=== PATIENT | female | born 1990 | race Caucasian/White ===

== ENCOUNTER → 2019-05-04 | Outpatient (CLI) | payer MEDICAID, OTHER ==
[~2019-05-04] MED LIST: PREN1TAB89 PO
== END | disposition home or self-care (01) ==
LOC: RAH 16:56
PROVIDERS: ATTEND Physician Assistant
DX: M79.672 Pain in left foot (principal); M79.89 Other specified soft tissue disorders
CPT/HCPCS: 73630

== ENCOUNTER → 2019-06-22 | Outpatient (CLI) | payer OTHER ==
[2019-06-22 07:39] LABS: BASOPHILS % (AUTO) 0.6 % (0.0-5.0); EOSINOPHILS % (AUTO) 1.7 % (0.0-8.0); HEMATOCRIT 42.9 % (36-48); MEAN CORPUSCULAR HEMOGLOBIN 29.2 pg (27.0-33.0); MEAN CORPUSCULAR HGB CONC 32.4 g/dL (32.0-36.0); MEAN CORPUSCULAR VOLUME 90.1 fL (79-99); MONOCYTES % (AUTO) 5.2 % (3.0-13.0); NEUTROPHILS % (AUTO) 66.2 % (40.0-77.0); PLATELET COUNT (AUTO) 301 K/uL (130-400); RED BLOOD CELL COUNT(AUTO) 4.76 MIL/uL (4.00-5.50); RED CELL DISTRIBUTION WIDTH 12.7 % (11.0-15.5); WHITE BLOOD COUNT (AUTO) 9.9 K/uL (4.8-10.8)
[2019-06-22 07:48] LABS: HEMOGLOBIN A1C 5.3 % (4.0-6.0)
[2019-06-22 08:05] LABS: ALBUMIN 3.5 g/dL (3.5-5.0); BILIRUBIN,TOTAL 0.2 mg/dL (0.2-1.0); CREATININE 0.7 mg/dL (0.5-1.5); THYROID STIMULATING HORMONE 2.88 uIU/mL (0.36-3.74)
== END | disposition home or self-care (01) ==
LOC: LAB 07:14
PROVIDERS: ATTEND Obstetrics & Gynecology
DX: M25.572 Pain in left ankle and joints of left foot (principal)
CPT/HCPCS: 36415; 80053; 80061; 82306; 83036; 84443; 85025; 85651; 86140; 86431; A6260

== ENCOUNTER → 2019-08-15 | Outpatient (CLI) | payer OTHER ==
[~2019-08-15] MED LIST changes: +GADODIAMIDE 10 MMOL/20 ML VIAL IV ONE
== END | disposition home or self-care (01) ==
LOC: RAH 15:37
PROVIDERS: ATTEND Psychiatry & Neurology Neurology
DX: D35.4 Benign neoplasm of pineal gland (principal); G43.909 Migraine, unspecified, not intractable, without status migrainosus
CPT/HCPCS: 70544; 70553; A9579

== ENCOUNTER 2019-09-22 18:24 | Emergency (ER) | payer OTHER ==
[~2019-09-22 18:24] MED LIST changes: -GADODIAMIDE 10 MMOL/20 ML VIAL IV ONE
== END 2019-09-22 19:00 | disposition home or self-care (01) ==
LOC: EDH 18:24
DX: J06.9 Acute upper respiratory infection, unspecified (principal); Z20.828 Contact with and (suspected) exposure to other viral communicable diseases
CPT/HCPCS: 36415; 99283; U0003

== ENCOUNTER → 2020-04-02 | Outpatient (CLI) | payer OTHER ==
[2020-04-02 09:14] LABS: BASOPHILS % (AUTO) 0.7 % (0.0-5.0); HEMATOCRIT 43.7 % (36-48); LYMPHOCYTES % (AUTO) 23.3 % (21.0-51.0); MEAN CORPUSCULAR HEMOGLOBIN 29.6 pg (27.0-33.0); MEAN CORPUSCULAR HGB CONC 33.4 g/dL (32.0-36.0); MEAN CORPUSCULAR VOLUME 88.6 fL (79-99); MONOCYTES % (AUTO) 5.3 % (3.0-13.0); NEUTROPHILS % (AUTO) 68.5 % (40.0-77.0); PLATELET COUNT (AUTO) 355 K/uL (130-400); RED BLOOD CELL COUNT(AUTO) 4.93 MIL/uL (4.00-5.50); RED CELL DISTRIBUTION WIDTH 12.7 % (11.0-15.5); WHITE BLOOD COUNT (AUTO) 8.8 K/uL (4.8-10.8)
[2020-04-02 09:15] LABS: APPEARANCE,URINE Clear (CLEAR); BILIRUBIN,URINE Negative (NEGATIVE); COLOR,URINE Yellow (YELLOW); GLUCOSE, URINE (UA) Negative (NEGATIVE); KETONES,URINE Negative (NEGATIVE); LEUKOCYTE ESTERASE ,URINE Moderate (NEGATIVE); NITRATE,URINE Negative (NEGATIVE); OCCULT BLOOD,URINE Negative (NEGATIVE); PH,URINE 7.5 (5.0-8.0); PROTEIN,URINE Negative (NEGATIVE)
[2020-04-02 09:37] LABS: ALBUMIN 3.3 g/dL (3.5-5.0); BILIRUBIN,TOTAL 0.4 mg/dL (0.2-1.0); CREATININE 0.6 mg/dL (0.5-1.5); THYROID STIMULATING HORMONE 1.43 uIU/mL (0.36-3.74); TOTAL PROTEIN, SERUM 7.9 g/dL (6.0-8.3)
[2020-04-02 09:43] LABS: BACTERIA,URINE Few /HPF (None Seen)
[2020-04-02 09:44] LABS: RBC,URINE None Seen /HPF (0-1)
[2020-04-02 10:11] LABS: ERYTHROCYTE SEDIMENTATION RATE 18 MM/HR (0-20)
== END | disposition home or self-care (01) ==
LOC: LAB 08:00
PROVIDERS: ATTEND Nurse Practitioner Family
DX: Z13.1 Encounter for screening for diabetes mellitus (principal); Z13.21 Encounter for screening for nutritional disorder; Z13.220 Encounter for screening for lipoid disorders; M79.641 Pain in right hand; M79.642 Pain in left hand; M25.50 Pain in unspecified joint; M79.89 Other specified soft tissue disorders; R60.0 Localized edema
CPT/HCPCS: 36415; 80053; 80061; 81001; 82306; 83520; 84439; 84443; 85025; 85651; 86038; 86215; 86235; 86431; 87088

== ENCOUNTER → 2020-07-03 | Outpatient (CLI) | payer OTHER ==
[2020-07-03 14:29] LABS: BASOPHILS % (AUTO) 0.5 % (0.0-5.0); EOSINOPHILS % (AUTO) 1.1 % (0.0-8.0); HEMATOCRIT 42.4 % (36-48); LYMPHOCYTES % (AUTO) 28.1 % (21.0-51.0); MEAN CORPUSCULAR HEMOGLOBIN 29.7 pg (27.0-33.0); MEAN CORPUSCULAR HGB CONC 33.7 g/dL (32.0-36.0); MEAN CORPUSCULAR VOLUME 88.1 fL (79-99); MONOCYTES % (AUTO) 4.1 % (3.0-13.0); PLATELET COUNT (AUTO) 353 K/uL (130-400); RED BLOOD CELL COUNT(AUTO) 4.81 MIL/uL (4.00-5.50); RED CELL DISTRIBUTION WIDTH 12.5 % (11.0-15.5)
[2020-07-03 14:45] LABS: ALBUMIN 3.6 g/dL (3.5-5.0); BILIRUBIN,TOTAL 0.3 mg/dL (0.2-1.0); CREATININE 0.6 mg/dL (0.5-1.5); CRP QUANTITATIVE 25.7 mg/L (0.00-9.0); POTASSIUM 3.8 mmol/L (3.5-5.1); TOTAL PROTEIN, SERUM 9.6 g/dL (6.0-8.3)
[2020-07-03 15:29] LABS: ERYTHROCYTE SEDIMENTATION RATE 21 MM/HR (0-20)
== END | disposition home or self-care (01) ==
LOC: RAH 13:55
PROVIDERS: ATTEND Internal Medicine
DX: M79.89 Other specified soft tissue disorders (principal); M19.91 Primary osteoarthritis, unspecified site; M06.4 Inflammatory polyarthropathy
CPT/HCPCS: 36415; 73630; 80053; 85025; 85651; 86140

== ENCOUNTER → 2020-09-11 | Outpatient (CLI) | payer OTHER ==
[2020-09-11 09:46] LABS: BASOPHILS % (AUTO) 0.5 % (0.0-5.0); EOSINOPHILS % (AUTO) 1.6 % (0.0-8.0); HEMATOCRIT 42.7 % (36-48); LYMPHOCYTES % (AUTO) 19.5 % (21.0-51.0); MEAN CORPUSCULAR HEMOGLOBIN 29.7 pg (27.0-33.0); MEAN CORPUSCULAR HGB CONC 32.8 g/dL (32.0-36.0); MEAN CORPUSCULAR VOLUME 90.5 fL (79-99); MONOCYTES % (AUTO) 4.9 % (3.0-13.0); NEUTROPHILS % (AUTO) 73.2 % (40.0-77.0); PLATELET COUNT (AUTO) 319 K/uL (130-400); RED BLOOD CELL COUNT(AUTO) 4.72 MIL/uL (4.00-5.50); RED CELL DISTRIBUTION WIDTH 12.9 % (11.0-15.5); WHITE BLOOD COUNT (AUTO) 9.7 K/uL (4.8-10.8)
[2020-09-11 10:01] LABS: ALBUMIN 3.5 g/dL (3.5-5.0); BILIRUBIN,TOTAL 0.4 mg/dL (0.2-1.0); CREATININE 0.6 mg/dL (0.5-1.5); CRP QUANTITATIVE 28.7 mg/L (0.00-9.0); POTASSIUM 4.2 mmol/L (3.5-5.1); TOTAL PROTEIN, SERUM 8.4 g/dL (6.0-8.3)
[2020-09-11 11:08] LABS: ERYTHROCYTE SEDIMENTATION RATE 26 MM/HR (0-20)
== END | disposition home or self-care (01) ==
LOC: LAB 08:29
PROVIDERS: ATTEND Internal Medicine
DX: Z79.899 Other long term (current) drug therapy (principal)
CPT/HCPCS: 36415; 80053; 85025; 85651; 86140

== ENCOUNTER → 2021-06-03 | Outpatient (CLI) | payer OTHER ==
[2021-06-03 08:34] LABS: BASOPHILS % (AUTO) 0.3 % (0.0-5.0); EOSINOPHILS % (AUTO) 1.6 % (0.0-8.0); HEMATOCRIT 37.8 % (36-48); LYMPHOCYTES % (AUTO) 16.9 % (21.0-51.0); MEAN CORPUSCULAR HEMOGLOBIN 30.2 pg (27.0-33.0); MEAN CORPUSCULAR HGB CONC 33.9 g/dL (32.0-36.0); MEAN CORPUSCULAR VOLUME 89.2 fL (79-99); MONOCYTES % (AUTO) 3.9 % (3.0-13.0); NEUTROPHILS % (AUTO) 76.8 % (40.0-77.0); PLATELET COUNT (AUTO) 271 K/uL (130-400); RED BLOOD CELL COUNT(AUTO) 4.24 MIL/uL (4.00-5.50); RED CELL DISTRIBUTION WIDTH 13.9 % (11.0-15.5); WHITE BLOOD COUNT (AUTO) 10.9 K/uL (4.8-10.8)
[2021-06-03 08:47] LABS: AMPHET/METH SCREEN,URINE NEGATIVE (NEGATIVE); BARBITURATE SCREEN, URINE NEGATIVE (NEGATIVE); BENZODIAZEPINES SCREEN,URINE NEGATIVE (NEGATIVE); CANNABINOID SCREEN,URINE NEGATIVE (NEGATIVE); COCAINE SCREEN,URINE NEGATIVE (NEGATIVE); OPIATE SCREEN,URINE NEGATIVE (NEGATIVE); PHENCYCLIDINE SCREEN,URINE NEGATIVE (NEGATIVE)
[2021-06-03 09:10] LABS: THYROID STIMULATING HORMONE 2.36 uIU/mL (0.36-3.74)
[2021-06-03 14:36] LABS: RAPID PLASMA REAGIN NONREACTIVE (NONREACTIVE)
[2021-06-03 17:10] LABS: HEMOGLOBIN A1C 5.1 % (4.0-6.0)
[2021-06-07 18:09] LABS: RUBELLA IGM ANTIBODY <20.0 AU/mL (0.0-19.9)
== END | disposition home or self-care (01) ==
LOC: LAB 07:28
PROVIDERS: ATTEND Obstetrics & Gynecology
DX: Z36.9 Encounter for antenatal screening, unspecified (principal)
CPT/HCPCS: 36415; 80305; 82947; 83036; 84443; 85025; 86592; 86701; 86762; 86850; 86900; 86901; 87088; 87340; 87390

== ENCOUNTER 2021-10-22 16:19 | Observation (INO) | payer OTHER ==
[~2021-10-22] VITALS: Ht 154.9 cm; Wt 99.8 kg
[2021-10-22 16:22] VITALS: BP 155/86
[2021-10-22 17:03] LABS: APPEARANCE,URINE CLOUDY (CLEAR); BASOPHILS % (AUTO) 0.2 % (0.0-5.0); BILIRUBIN,URINE NEGATIVE (NEGATIVE); COLOR,URINE YELLOW (YELLOW); EOSINOPHILS % (AUTO) 1.1 % (0.0-8.0); GLUCOSE, URINE (UA) NEGATIVE (NEGATIVE); HEMATOCRIT 36.6 % (36-48); KETONES,URINE NEGATIVE (NEGATIVE); LEUKOCYTE ESTERASE ,URINE TRACE (NEGATIVE); LYMPHOCYTES % (AUTO) 22.3 % (21.0-51.0); MEAN CORPUSCULAR HEMOGLOBIN 30.2 pg (27.0-33.0); MEAN CORPUSCULAR HGB CONC 33.6 g/dL (32.0-36.0); MEAN CORPUSCULAR VOLUME 89.9 fL (79-99); MONOCYTES % (AUTO) 6.4 % (3.0-13.0); NEUTROPHILS % (AUTO) 69.6 % (40.0-77.0); NITRATE,URINE NEGATIVE (NEGATIVE); OCCULT BLOOD,URINE LARGE (NEGATIVE); PLATELET COUNT (AUTO) 228 K/uL (130-400); PROTEIN,URINE NEGATIVE (NEGATIVE); RED BLOOD CELL COUNT(AUTO) 4.07 MIL/uL (4.00-5.50); RED CELL DISTRIBUTION WIDTH 14.3 % (11.0-15.5); UROBILINOGEN,URINE 0.2 mg/dL (0.2-1.0); WHITE BLOOD COUNT (AUTO) 8.5 K/uL (4.8-10.8)
[2021-10-22 17:13] LABS: CREATININE 0.6 mg/dL (0.5-1.5); POTASSIUM 3.7 mmol/L (3.5-5.1)
[2021-10-22 17:16] LABS: INR 0.93 (0.85-1.15); PROTHROMBIN TIME 9.7 SEC (9.6-11.6)
[2021-10-22 17:17] LABS: PARTIAL THROMBOPLASTIN TIME 26.4 SEC (26.3-35.5)
[2021-10-22 17:18] LABS: ALBUMIN 2.4 g/dL (3.5-5.0); TOTAL PROTEIN, SERUM 7.1 g/dL (6.0-8.3)
[2021-10-22 17:20] LABS: RBC,URINE 26-50 /HPF (0-1)
[2021-10-22 17:21] LABS: BACTERIA,URINE Few /HPF (None Seen); SQUAMOUS EPITHELIAL CELL,UR Moderate /HPF (0-2)
== END 2021-10-22 18:00 | disposition home or self-care (01) ==
LOC: EDH 16:19 → LDH 16:20
PROVIDERS: ADMIT Obstetrics & Gynecology; ATTEND Obstetrics & Gynecology
DX: O26.893 Other specified pregnancy related conditions, third trimester (principal); R03.0 Elevated blood-pressure reading, without diagnosis of hypertension; Z3A.37 37 weeks gestation of pregnancy; Z79.899 Other long term (current) drug therapy
CPT/HCPCS: 59025; 76805; 84550; 80053; 85025; 85384; 85610; 85730; 81001; 36415; G0378; G0379

== ENCOUNTER 2021-11-16 17:21 | Inpatient (IN) | payer OTHER, MEDICAID ==
[~2021-11-16] VITALS: Ht 157.5 cm; Wt 98.9 kg
[2021-11-16] MEDS ORDERED: NALOXONE HCL 0.4 MG/1 ML ML IV PRN (18:00)
[2021-11-16] MEDS ORDERED: ROPIVACAINE 0.2% 100ML VIAL 100 ML EP SCH (18:00)
[2021-11-16] MEDS ORDERED: EPHEDRINE SULFATE 50 MG/ML AMPULE IVP PRN (18:00)
[2021-11-16] MEDS ORDERED: PROMETHAZINE HCL 25 MG/ML 1ML AMPULE IM PRN (18:00)
[2021-11-16] MEDS ORDERED: MEPERIDINE-PF 50 MG/ML SYG IVP PRN (18:00)
[2021-11-16] MEDS ORDERED: OXYTOCIN-LR 20 UNITS/1000 ML 1,000 ML IV SCH (18:00)
[2021-11-16] MEDS ORDERED: DINOPROSTONE 10 MG VAGINAL SUPP VG SCH (18:00)
[2021-11-16] MEDS ORDERED: AMPICILLIN 2GM+NS 100ML 100 ML IV SCH (18:00)
[2021-11-16] MEDS ORDERED: LACTATED RINGERS 500 ML 500 ML IV PRN (18:00)
[2021-11-16] MEDS: LACTATED RINGERS 1000ML 1,000 ML IV PRN (18:28)
[2021-11-16 19:17] VITALS: BP 111/58
[2021-11-16 19:21] LABS: HEMATOCRIT 35.8 % (36-48); MEAN CORPUSCULAR HEMOGLOBIN 30.1 pg (27.0-33.0); MEAN CORPUSCULAR HGB CONC 33.8 g/dL (32.0-36.0); MEAN CORPUSCULAR VOLUME 89.1 fL (79-99); RED BLOOD CELL COUNT(AUTO) 4.02 MIL/uL (4.00-5.50); RED CELL DISTRIBUTION WIDTH 14.1 % (11.0-15.5); WHITE BLOOD COUNT (AUTO) 7.2 K/uL (4.8-10.8)
[2021-11-16 19:30] LABS: APPEARANCE,URINE CLOUDY (CLEAR); BILIRUBIN,URINE NEGATIVE (NEGATIVE); COLOR,URINE YELLOW (YELLOW); GLUCOSE, URINE (UA) NEGATIVE (NEGATIVE); KETONES,URINE 5 mg/dL (NEGATIVE); LEUKOCYTE ESTERASE ,URINE NEGATIVE (NEGATIVE); NITRATE,URINE NEGATIVE (NEGATIVE); OCCULT BLOOD,URINE NEGATIVE (NEGATIVE); PROTEIN,URINE TRACE mg/dL (NEGATIVE); UROBILINOGEN,URINE 0.2 mg/dL (0.2-1.0)
[2021-11-16 19:34] LABS: PARTIAL THROMBOPLASTIN TIME 26.4 SEC (26.3-35.5)
[2021-11-16 19:35] LABS: CREATININE 0.6 mg/dL (0.5-1.5); POTASSIUM 3.5 mmol/L (3.5-5.1)
[2021-11-16 19:41] LABS: ALBUMIN 2.5 g/dL (3.5-5.0); TOTAL PROTEIN, SERUM 6.8 g/dL (6.0-8.3); URIC ACID 3.9 mg/dL (2.6-7.2)
[2021-11-16 19:44] LABS: RBC,URINE 0-1 /HPF (0-1)
[2021-11-16 19:45] LABS: BACTERIA,URINE Few /HPF (None Seen); CALCIUM OXALATE CRYSTALS,UR Few /LPF (None Seen); MUCUS,URINE Moderate LPF (None Seen); SQUAMOUS EPITHELIAL CELL,UR Moderate /HPF (0-2)
[2021-11-16 19:52] LABS: INR 0.93 (0.85-1.15); PROTHROMBIN TIME 9.4 SEC (9.6-11.6)
[2021-11-16 22:34] LABS: RAPID PLASMA REAGIN NONREACTIVE (NONREACTIVE)
[2021-11-16] MEDS: AMPICILLIN 1GM+NS 50ML 50 ML IV SCH (22:43)
[2021-11-17] MEDS: AMPICILLIN 1GM+NS 50ML 50 ML IV SCH ×5 (02:37→18:42)
[2021-11-17] MEDS ORDERED: FENTANYL CITRATE PF 50 MCG/1 ML 2ML VIAL ONE (07:48)
[2021-11-17] MEDS ORDERED: OXYTOCIN-LR 20 UNITS/1000 ML 1,000 ML IV SCH (08:00)
[2021-11-17] MEDS: LACTATED RINGERS 1000ML 1,000 ML IV PRN ×3 (08:10→16:00)
[2021-11-17] MEDS ORDERED: LIDOCAINE 2%-EPI 1:200,000 20 ML VIAL IJ ONE (10:29)
[2021-11-17] MEDS ORDERED: CEFAZOLIN SODIUM 1 GM VIAL ONE (19:31)
[2021-11-17] MEDS ORDERED: ONDANSETRON 4MG INJ ONE (19:40)
[2021-11-17] MEDS ORDERED: EPINEPHRINE PF 1MG (1:1,000) 1 MG/ML AMP ONE (19:41)
[2021-11-17] MEDS ORDERED: MORPHINE PF 100MG/10ML AMP IV ONE (19:42)
[2021-11-17] MEDS ORDERED: CALDOLOR 800MG+NS 250ML 250 ML IV ONE (19:47)
[2021-11-17] MEDS ORDERED: MISOPROSTOL 200 MCG TABLET ONE (19:47)
[2021-11-17] MEDS ORDERED: TRANEXAMIC ACID 1000MG/10ML ONE (19:54)
[2021-11-17] MEDS ORDERED: CEFAZOLIN SODIUM 2 GM VIAL IV ONE (19:57)
[2021-11-17] MEDS ORDERED: CALDOLOR 800MG+NS 250ML 250 ML IV PRN (20:00)
[2021-11-17] MEDS ORDERED: CEFAZOLIN SODIUM 1 GM VIAL IVP PRN (20:00)
[2021-11-17] MEDS ORDERED: MIDAZOLAM HCL 1 MG/ML 2ML VIAL ONE (20:25)
[2021-11-17] MEDS ORDERED: EPHEDRINE SULFATE 50 MG/ML AMPULE ONE (20:32)
[2021-11-17] MEDS ORDERED: PROMETHAZINE HCL 25 MG/ML 1ML AMPULE IM PRN (21:30)
[2021-11-17] MEDS ORDERED: MEPERIDINE-PF 75 MG/ML SYG IM PRN (21:30)
[2021-11-17] MEDS ORDERED: DEXTROSE 5 %-0.45 % NACL 1,000 ML IV PRN (21:30)
[2021-11-17] MEDS ORDERED: OXYTOCIN-LR 20 UNITS/1000 ML 1,000 ML IV PRN (21:30)
[2021-11-17] MEDS ORDERED: 0.9%NACL 10ML VIAL IVP PRN (21:30)
[2021-11-18] VITALS (7 sets, daily range): BP systolic 94–121; BP diastolic 51–72
[2021-11-18] MEDS ORDERED: HYDROCODONE/ACETAMINOPHEN 5/325 MG TAB PO PRN (04:30)
[2021-11-18] MEDS ORDERED: ACETAMINOPHEN WITH CODEINE 1 TAB TAB PO PRN (04:30)
[2021-11-18] MEDS ORDERED: BISACODYL 10 MG SUPP.RECT RC PRN (04:30)
[2021-11-18] MEDS ORDERED: ACETAMINOPHEN 500 MG TABLET PO PRN (04:30)
[2021-11-18] MEDS ORDERED: LANOLIN 30GM OINTMENT TP PRN (04:30)
[2021-11-18] MEDS: CALDOLOR 800MG+NS 250ML 250 ML IV SCH ×2 (05:18→13:20)
[2021-11-18 06:19] LABS: HEMATOCRIT 26.6 % (36-48); MEAN CORPUSCULAR HEMOGLOBIN 30.6 pg (27.0-33.0); MEAN CORPUSCULAR HGB CONC 33.5 g/dL (32.0-36.0); MEAN CORPUSCULAR VOLUME 91.4 fL (79-99); RED BLOOD CELL COUNT(AUTO) 2.91 MIL/uL (4.00-5.50); RED CELL DISTRIBUTION WIDTH 14.6 % (11.0-15.5); WHITE BLOOD COUNT (AUTO) 13.7 K/uL (4.8-10.8)
[2021-11-18] MEDS: DOCUSATE SODIUM 100 MG CAP PO SCH ×2 (08:55→21:25)
[2021-11-18] MEDS: SIMETHICONE 80 MG TAB.CHEW PO PRN ×4 (08:55→21:25)
[2021-11-18] MEDS: IBUPROFEN 800 MG TAB PO SCH (21:28)
[2021-11-19 03:35] VITALS: BP 132/68
[2021-11-19] MEDS: IBUPROFEN 800 MG TAB PO SCH (05:37)
[2021-11-19 07:40] VITALS: BP 108/57
[2021-11-19] MEDS: DOCUSATE SODIUM 100 MG CAP PO SCH (08:35)
[2021-11-19] MEDS: SIMETHICONE 80 MG TAB.CHEW PO PRN (08:35)
[2021-11-19] MEDS ORDERED: DOCU-116 PO (08:57)
[2021-11-19] MEDS ORDERED: IBUP-2077 PO (08:57)
[2021-11-19] MEDS ORDERED: ACET-2079 PO (08:57)
[2021-11-19 09:13] LABS: HEPATITIS Bs ANTIGEN SCREEN P Negative (Negative)
[2021-11-19 11:53] VITALS: BP 108/54
== END 2021-11-19 12:10 | disposition home or self-care (01) | DRG 788 ==
LOC: LDH 17:21 → WSH 11-18 00:23
PROVIDERS: ADMIT Obstetrics & Gynecology; ATTEND Obstetrics & Gynecology
PROC: 10D00Z1 Extraction of Products of Conception, Low, Open Approach (ICD-10-PCS; principal; 2021-11-17 20:12)
DX: O62.2 Other uterine inertia (principal); O99.824 Streptococcus B carrier state complicating childbirth; Z37.0 Single live birth; Z3A.40 40 weeks gestation of pregnancy
CPT/HCPCS: 36415; 59510; 80053; 81001; 84550; 85027; 85384; 85610; 85730; 86592; 86701; 86850; 86900; 86901; 87340; 87390; A4314; A4344; G0378; J0171; J0290; J0690; J1741; J2175; J2250; J2274; J2405; J2550; J2590; J2795; J3010; J3490; J7120

== ENCOUNTER 2021-11-20 23:06 | Emergency (ER) | payer OTHER, MEDICAID ==
[~2021-11-20] VITALS: Ht 154.9 cm; Wt 95.7 kg
[~2021-11-20 23:06] MED LIST changes: +ACET-2079 PO; +DOCU-116 PO; +IBUP-2077 PO
[2021-11-20 23:38] LABS: BASOPHILS % (AUTO) 0.3 % (0.0-5.0); EOSINOPHILS % (AUTO) 2.7 % (0.0-8.0); HEMATOCRIT 24.7 % (36-48); LYMPHOCYTES % (AUTO) 23.1 % (21.0-51.0); MEAN CORPUSCULAR HEMOGLOBIN 29.9 pg (27.0-33.0); MEAN CORPUSCULAR HGB CONC 33.2 g/dL (32.0-36.0); MEAN CORPUSCULAR VOLUME 90.1 fL (79-99); MONOCYTES % (AUTO) 4.4 % (3.0-13.0); PLATELET COUNT (AUTO) 218 K/uL (130-400); RED BLOOD CELL COUNT(AUTO) 2.74 MIL/uL (4.00-5.50); RED CELL DISTRIBUTION WIDTH 14.5 % (11.0-15.5); WHITE BLOOD COUNT (AUTO) 8.8 K/uL (4.8-10.8)
[2021-11-20 23:47] LABS: CREATININE 0.6 mg/dL (0.5-1.5); POTASSIUM 3.3 mmol/L (3.5-5.1)
[2021-11-20 23:49] LABS: APPEARANCE,URINE CLEAR (CLEAR); BILIRUBIN,URINE NEGATIVE (NEGATIVE); COLOR,URINE YELLOW (YELLOW); GLUCOSE, URINE (UA) NEGATIVE (NEGATIVE); KETONES,URINE 5 mg/dL (NEGATIVE); LEUKOCYTE ESTERASE ,URINE SMALL (NEGATIVE); NITRATE,URINE NEGATIVE (NEGATIVE); OCCULT BLOOD,URINE LARGE (NEGATIVE); PROTEIN,URINE NEGATIVE (NEGATIVE)
[2021-11-20 23:52] LABS: ALBUMIN 2.1 g/dL (3.5-5.0); TOTAL PROTEIN, SERUM 6.2 g/dL (6.0-8.3)
[2021-11-20 23:54] LABS: BACTERIA,URINE Rare /HPF (None Seen); MUCUS,URINE Moderate LPF (None Seen); SQUAMOUS EPITHELIAL CELL,UR Moderate /HPF (0-2)
[2021-11-21] MEDS: FUROSEMIDE 40MG VIAL IV ONE (00:40)
[2021-11-21] MEDS ORDERED: FURO-152 PO (01:25)
[2021-11-21 01:35] VITALS: BP 127/72
== END 2021-11-21 01:36 | disposition home or self-care (01) ==
LOC: EDH 23:06
DX: R60.0 Localized edema (principal); Z79.1 Long term (current) use of non-steroidal anti-inflammatories (NSAID)
CPT/HCPCS: 99285; 84484; 80053; 83880; 85025; 81001; 36415; 93005; 93970; 96374; J1940

== ENCOUNTER → 2021-12-23 | Outpatient (CLI) | payer OTHER, MEDICAID ==
[~2021-12-23] MED LIST changes: +FURO-152 PO
[2021-12-23 09:29] LABS: BASOPHILS % (AUTO) 0.7 % (0.0-5.0); HEMATOCRIT 35.1 % (36-48); LYMPHOCYTES % (AUTO) 51.5 % (21.0-51.0); MEAN CORPUSCULAR HEMOGLOBIN 27.4 pg (27.0-33.0); MEAN CORPUSCULAR HGB CONC 31.3 g/dL (32.0-36.0); MEAN CORPUSCULAR VOLUME 87.3 fL (79-99); MONOCYTES % (AUTO) 6.3 % (3.0-13.0); NEUTROPHILS % (AUTO) 40.3 % (40.0-77.0); PLATELET COUNT (AUTO) 406 K/uL (130-400); RED BLOOD CELL COUNT(AUTO) 4.02 MIL/uL (4.00-5.50); RED CELL DISTRIBUTION WIDTH 14.9 % (11.0-15.5); WHITE BLOOD COUNT (AUTO) 10.8 K/uL (4.8-10.8)
[2021-12-23 10:08] LABS: ALANINE AMINOTRANSFERASE 38 U/L (12-78); ALBUMIN 3.5 g/dL (3.5-5.0); ASPARTATE AMINOTRANSFERASE 19 U/L (10-37); CARBON DIOXIDE 29 mmol/L (21-32); CHLORIDE 104 mmol/L (101-111); CREATININE 0.8 mg/dL (0.5-1.5); GLOMERULAR FILTR. RATE CALC 88 mL/min (>60); GLUCOSE,RANDOM 81 mg/dL (70-105); POTASSIUM 3.3 mmol/L (3.5-5.1); SODIUM SERUM 140 mmol/L (136-145); TOTAL PROTEIN, SERUM 7.9 g/dL (6.0-8.3); UREA NITROGEN, BLOOD 12 mg/dL (7-18)
[2021-12-23 10:11] LABS: CRP QUANTITATIVE < 2.00 mg/L (0.00-9.0)
[2021-12-23 11:05] LABS: ERYTHROCYTE SEDIMENTATION RATE 52 MM/HR (0-20)
== END | disposition home or self-care (01) ==
LOC: LAB 08:51
PROVIDERS: ATTEND Internal Medicine
DX: M05.79 Rheumatoid arthritis with rheumatoid factor of multiple sites without organ or systems involvement (principal)
CPT/HCPCS: 36415; 80053; 85025; 85651; 86140; 86200; 86431; 86480; 86704; 87350

== ENCOUNTER → 2022-04-30 | Outpatient (CLI) | payer OTHER, MEDICAID ==
[2022-04-30 09:22] LABS: BASOPHILS % (AUTO) 0.6 % (0.0-5.0); EOSINOPHILS % (AUTO) 1.4 % (0.0-8.0); HEMATOCRIT 39.6 % (36-48); LYMPHOCYTES % (AUTO) 29.6 % (21.0-51.0); MEAN CORPUSCULAR HEMOGLOBIN 26.9 pg (27.0-33.0); MEAN CORPUSCULAR HGB CONC 31.6 g/dL (32.0-36.0); MEAN CORPUSCULAR VOLUME 85.2 fL (79-99); MONOCYTES % (AUTO) 5.6 % (3.0-13.0); NEUTROPHILS % (AUTO) 62.5 % (40.0-77.0); PLATELET COUNT (AUTO) 325 K/uL (130-400); RED BLOOD CELL COUNT(AUTO) 4.65 MIL/uL (4.00-5.50); RED CELL DISTRIBUTION WIDTH 17.2 % (11.0-15.5)
[2022-04-30 09:42] LABS: ALBUMIN 3.6 g/dL (3.5-5.0); CREATININE 0.6 mg/dL (0.5-1.5); CRP QUANTITATIVE 3.4 mg/L (0.00-9.0); TOTAL PROTEIN, SERUM 7.7 g/dL (6.0-8.3)
[2022-04-30 10:57] LABS: ERYTHROCYTE SEDIMENTATION RATE 15 MM/HR (0-20)
[2022-04-30 20:39] LABS: HEPATITIS B CORE IGM ANTIBODY Non-Reactive (Negative); HEPATITIS B SURFACE ANTIGEN Non-Reactive (Nonreactive)
== END | disposition home or self-care (01) ==
LOC: LAB 08:30
PROVIDERS: ATTEND Internal Medicine
DX: Z79.899 Other long term (current) drug therapy (principal)
CPT/HCPCS: 36415; 80053; 85025; 85651; 86140; 86480; 86705; 87340

== ENCOUNTER → 2022-07-06 | Outpatient (CLI) | payer OTHER, MEDICAID ==
[2022-07-06 16:01] LABS: BASOPHILS % (AUTO) 0.3 % (0.0-5.0); EOSINOPHILS % (AUTO) 2.2 % (0.0-8.0); HEMATOCRIT 41.4 % (36-48); LYMPHOCYTES % (AUTO) 31.4 % (21.0-51.0); MEAN CORPUSCULAR HEMOGLOBIN 29.4 pg (27.0-33.0); MEAN CORPUSCULAR HGB CONC 32.9 g/dL (32.0-36.0); MEAN CORPUSCULAR VOLUME 89.4 fL (79-99); MONOCYTES % (AUTO) 5.5 % (3.0-13.0); NEUTROPHILS % (AUTO) 60.4 % (40.0-77.0); PLATELET COUNT (AUTO) 343 K/uL (130-400); RED BLOOD CELL COUNT(AUTO) 4.63 MIL/uL (4.00-5.50); RED CELL DISTRIBUTION WIDTH 15.1 % (11.0-15.5); WHITE BLOOD COUNT (AUTO) 8.6 K/uL (4.8-10.8)
[2022-07-06 16:31] LABS: ALBUMIN 3.5 g/dL (3.5-5.0); CREATININE 0.6 mg/dL (0.5-1.5); CRP QUANTITATIVE 34.5 mg/L (0.00-9.0); POTASSIUM 3.7 mmol/L (3.5-5.1); TOTAL PROTEIN, SERUM 7.9 g/dL (6.0-8.3)
[2022-07-06 17:14] LABS: ERYTHROCYTE SEDIMENTATION RATE 20 MM/HR (0-20)
== END | disposition home or self-care (01) ==
LOC: RAH 15:28
PROVIDERS: ATTEND Internal Medicine
DX: M25.562 Pain in left knee (principal); M25.561 Pain in right knee; Z79.899 Other long term (current) drug therapy
CPT/HCPCS: 36415; 80053; 85025; 85651; 86140

== ENCOUNTER → 2022-09-27 | Outpatient (CLI) | payer OTHER, MEDICAID | END | disposition home or self-care (01) | LOC: RAH 08:36 | PROVIDERS: ATTEND Internal Medicine | DX: M54.2 Cervicalgia (principal); M54.16 Radiculopathy, lumbar region | CPT/HCPCS: 72040; 72100 ==

== ENCOUNTER → 2022-10-25 | Outpatient (CLI) | payer OTHER, MEDICAID | END | disposition home or self-care (01) | LOC: RAH 13:43 | PROVIDERS: ATTEND Internal Medicine | DX: M54.16 Radiculopathy, lumbar region (principal) | CPT/HCPCS: 72148 ==

== ENCOUNTER → 2023-02-04 | Outpatient (CLI) | payer OTHER ==
[2023-02-04 14:22] LABS: BASOPHILS # (AUTO) 0.07 K/uL (0.00-0.20); BASOPHILS % (AUTO) 0.8 % (0.0-5.0); EOSINOPHILS # (AUTO) 0.12 K/uL (0.00-0.70); EOSINOPHILS % (AUTO) 1.4 % (0.0-8.0); HEMATOCRIT 42.5 % (36-48); IMMATURE GRANULOCYTE ABSOLUTE 0.03 K/uL (0-1); LYMPHOCYTES % (AUTO) 23.7 % (21.0-51.0); MEAN CORPUSCULAR HEMOGLOBIN 30.1 pg (27.0-33.0); MEAN CORPUSCULAR HGB CONC 33.2 g/dL (32.0-36.0); MEAN CORPUSCULAR VOLUME 90.8 fL (79-99); MONOCYTES # (AUTO) 0.4 K/uL (0.1-1.0); MONOCYTES % (AUTO) 5.1 % (3.0-13.0); NEUTROPHILS # (AUTO) 5.7 K/uL (1.8-7.7); NEUTROPHILS % (AUTO) 68.6 % (40.0-77.0); PLATELET COUNT (AUTO) 343 K/uL (130-400); RED BLOOD CELL COUNT(AUTO) 4.68 MIL/uL (4.00-5.50); RED CELL DISTRIBUTION WIDTH 12.5 % (11.0-15.5); WHITE BLOOD COUNT (AUTO) 8.4 K/uL (4.8-10.8)
[2023-02-04 14:39] LABS: BILIRUBIN,TOTAL 0.5 mg/dL (0.2-1.0); CREATININE 0.6 mg/dL (0.5-1.5); POTASSIUM 3.6 mmol/L (3.5-5.1); TOTAL PROTEIN, SERUM 8.5 g/dL (6.0-8.3)
== END | disposition home or self-care (01) ==
LOC: RAH 12:50
PROVIDERS: ATTEND Obstetrics & Gynecology
DX: N88.8 Other specified noninflammatory disorders of cervix uteri (principal); R19.00 Intra-abdominal and pelvic swelling, mass and lump, unspecified site
CPT/HCPCS: 36415; 76830; 76856; 80053; 83615; 85025; 86304; 86305

== ENCOUNTER → 2023-06-21 | Outpatient (CLI) | payer OTHER ==
[2023-06-21 12:25] LABS: INR <= 0.93 (0.85-1.15); PROTHROMBIN TIME 10.7 SEC (9.6-11.6)
== END | disposition home or self-care (01) ==
LOC: LAB 11:40
PROVIDERS: ATTEND Obstetrics & Gynecology
DX: R79.1 Abnormal coagulation profile (principal)
CPT/HCPCS: 36415; 85610

== ENCOUNTER 2023-06-22 20:01 | Inpatient (IN) | payer OTHER ==
[~2023-06-22] VITALS: Ht 154.9 cm; Wt 76.3 kg
[2023-06-22] MEDS: ONDANSETRON 4MG INJ IVP ONE (20:45)
[2023-06-22] MEDS: MORPHINE 4 MG SYG IVP ONE ×2 (20:45→20:46)
[2023-06-22] MEDS: LACTATED RINGERS 1000ML 1,000 ML IV ONE (20:46)
[2023-06-22] MEDS: LACTATED RINGERS 1000ML 2,000 ML IV ONE (20:46)
[2023-06-22 20:48] LABS: BASOPHILS # (AUTO) 0.04 K/uL (0.00-0.20); BASOPHILS % (AUTO) 0.3 % (0.0-5.0); HEMATOCRIT 43.6 % (36-48); IMMATURE GRANULOCYTE ABSOLUTE 0.06 K/uL (0-1); LYMPHOCYTES # (AUTO) 0.6 K/uL (1.0-4.8); LYMPHOCYTES % (AUTO) 4.5 % (21.0-51.0); MEAN CORPUSCULAR HEMOGLOBIN 29.1 pg (27.0-33.0); MEAN CORPUSCULAR HGB CONC 32.8 g/dL (32.0-36.0); MEAN CORPUSCULAR VOLUME 88.8 fL (79-99); MONOCYTES # (AUTO) 0.3 K/uL (0.1-1.0); MONOCYTES % (AUTO) 2.4 % (3.0-13.0); NEUTROPHILS # (AUTO) 12.8 K/uL (1.8-7.7); NEUTROPHILS % (AUTO) 92.4 % (40.0-77.0); PLATELET COUNT (AUTO) 315 K/uL (130-400); RED BLOOD CELL COUNT(AUTO) 4.91 MIL/uL (4.00-5.50); RED CELL DISTRIBUTION WIDTH 13.2 % (11.0-15.5); WHITE BLOOD COUNT (AUTO) 13.9 K/uL (4.8-10.8)
[2023-06-22] MEDS: HYDROMORPHONE 2 MG VIAL (2MG/ML) IVP ONE (21:04)
[2023-06-22 21:09] LABS: WBC MORPHOLOGY CONSISTENT W/DIFF
[2023-06-22 21:41] LABS: CREATININE 0.7 mg/dL (0.5-1.5); POTASSIUM 3.9 mmol/L (3.5-5.1)
[2023-06-22 21:50] LABS: ALBUMIN 3.1 g/dL (3.5-5.0); BILIRUBIN,TOTAL 0.5 mg/dL (0.2-1.0); TOTAL PROTEIN, SERUM 6.9 g/dL (6.0-8.3)
[2023-06-22] MEDS: CEFAZOLIN SODIUM 2 GM VIAL IVPB SCH (22:32)
[2023-06-22 22:36] LABS: APPEARANCE,URINE CLEAR (CLEAR); BILIRUBIN,URINE NEGATIVE (NEGATIVE); COLOR,URINE YELLOW (YELLOW); GLUCOSE, URINE (UA) NEGATIVE (NEGATIVE); KETONES,URINE NEGATIVE (NEGATIVE); LEUKOCYTE ESTERASE ,URINE NEGATIVE Leu/uL (NEGATIVE); NITRATE,URINE NEGATIVE (NEGATIVE); PROTEIN,URINE 10 mg/dL (NEGATIVE); UROBILINOGEN,URINE 0.2 mg/dL (0.2-1.0)
[2023-06-22 22:38] LABS: ADD UA MICROSCOPIC YES
[2023-06-22 22:39] LABS: HCG,QUALITATIVE URINE NEGATIVE (NEGATIVE)
[2023-06-22 22:42] LABS: MUCUS,URINE FEW LPF (None Seen); SQUAMOUS EPITHELIAL CELL,UR RARE /HPF (0-2)
[2023-06-22] MEDS ORDERED: LIDOCAINE PF 100MG/5ML (2%) SYRINGE 5ML ONE (22:54)
[2023-06-22] MEDS ORDERED: FENTANYL CITRATE PF 50 MCG/1 ML 2ML VIAL ONE (22:54)
[2023-06-22] MEDS ORDERED: PROPOFOL 10 MG/ML 20ML VIAL IV ONE (22:54)
[2023-06-22] MEDS ORDERED: MIDAZOLAM HCL 1 MG/ML 2ML VIAL ONE (22:55)
[2023-06-22] MEDS ORDERED: ROCURONIUM BROMIDE 10MG/1ML 5ML VL ONE ×2 (22:55→23:58)
[2023-06-22] MEDS ORDERED: KETAMINE 50MG/ML SYRINGE 50 MG/ML DISP.SYRIN ONE (22:56)
[2023-06-22] MEDS ORDERED: DEXAMETHASONE SOD PHOSPHATE 10MG/ML 1ML VIAL ONE (23:42)
[2023-06-22] MEDS ORDERED: ONDANSETRON 4MG INJ ONE (23:43)
[2023-06-22] MEDS: CEFAZOLIN SODIUM 2 GM VIAL IVPB ONE (23:45)
[2023-06-22] MEDS ORDERED: CEFAZOLIN SODIUM 1 GM VIAL ONE (23:45)
[2023-06-23] VITALS (22 sets, daily range): BP systolic 88–141; BP diastolic 62–84; PULSE 92–128; RESP 18–20
[2023-06-23] MEDS: SUGAMMADEX SODIUM 200 MG/2 ML VIAL IV ONE (00:12)
[2023-06-23] MEDS ORDERED: FENTANYL CITRATE PF 50 MCG/1 ML 2ML VIAL ONE (00:41)
[2023-06-23] MEDS: BUPIVACAINE/PF 0.25% 30ML VIAL IJ ONE (00:45)
[2023-06-23] MEDS: KETOROLAC 15MG/ML VIAL (15MG/ML) IV SCH (05:11)
[2023-06-23] MEDS: DEXTROSE 5%-LACTATED RINGERS 1,000 ML IV SCH (05:12)
[2023-06-23] MEDS: MORPHINE 10 MG SYG IM PRN (05:59)
[2023-06-23 06:53] LABS: HEMATOCRIT 38.3 % (36-48); MEAN CORPUSCULAR HEMOGLOBIN 28.3 pg (27.0-33.0); MEAN CORPUSCULAR HGB CONC 32.6 g/dL (32.0-36.0); MEAN CORPUSCULAR VOLUME 86.8 fL (79-99); RED BLOOD CELL COUNT(AUTO) 4.41 MIL/uL (4.00-5.50); RED CELL DISTRIBUTION WIDTH 13.6 % (11.0-15.5)
[2023-06-23 06:57] LABS: CREATININE 0.7 mg/dL (0.5-1.5)
[2023-06-23] MEDS: MORPHINE 10MG VIAL ONE (07:38)
[2023-06-23] MEDS: ACETAMINOPHEN 325 MG TAB PO SCH (08:08)
[2023-06-23] MEDS: SIMETHICONE 80 MG TAB.CHEW PO SCH (08:59)
[2023-06-23] MEDS: BISACODYL 10 MG SUPP.RECT RC PRN ×2 (08:59→18:34)
[2023-06-23] MEDS: LORAZEPAM 2 MG/ML 1 ML VIAL IVP PRN (09:00)
[2023-06-23] MEDS: ONDANSETRON 4MG INJ IVP PRN (13:35)
[2023-06-23] MEDS: MORPHINE 10MG VIAL IM PRN (19:12)
[2023-06-24] VITALS (125 sets, daily range): BP systolic 72–146; BP diastolic 0–89; PULSE 101–135; RESP 15–46; O2SAT 95–100
[2023-06-24 04:39] LABS: ABG BASE EXCESS -6.1 mmol/L (-2.0-3.0); ABG HCO3 18.3 mmol/L (21.0-28.0); ABG PCO2 33 mmHg (32-45); CARBON MONOXIDE 1.1; PO2, ARTERIAL BG 93.9 mmHg (83.0-108.0); VENT MODE, BG 3 L NC (ROOM AIR)
[2023-06-24 04:53] LABS: CREATININE 2.6 mg/dL (0.5-1.5); POTASSIUM 3.8 mmol/L (3.5-5.1)
[2023-06-24 04:56] LABS: INR 1.21 (0.85-1.15); PROTHROMBIN TIME 14.1 SEC (9.6-11.6)
[2023-06-24 04:57] LABS: PARTIAL THROMBOPLASTIN TIME 29.1 SEC (26.3-35.5)
[2023-06-24] MEDS ORDERED: IOHEXOL 350 MG/ML 100ML INFUS..BTL IV ONE (04:57)
[2023-06-24 05:16] LABS: ALBUMIN 2.2 g/dL (3.5-5.0); BILIRUBIN,TOTAL 1.2 mg/dL (0.2-1.0)
[2023-06-24 05:58] LABS: HEMATOCRIT 42.4 % (36-48); MEAN CORPUSCULAR HEMOGLOBIN 28.2 pg (27.0-33.0); MEAN CORPUSCULAR HGB CONC 32.3 g/dL (32.0-36.0); MEAN CORPUSCULAR VOLUME 87.4 fL (79-99); RED BLOOD CELL COUNT(AUTO) 4.85 MIL/uL (4.00-5.50); RED CELL DISTRIBUTION WIDTH 14.5 % (11.0-15.5); WHITE BLOOD COUNT (AUTO) 5.4 K/uL (4.8-10.8)
[2023-06-24 06:08] LABS: POTASSIUM 3.8 mmol/L (3.5-5.1)
[2023-06-24] MEDS: ZOSYN 3.375GM +NS 50ML IV SCH (06:10)
[2023-06-24] MEDS: 0.9%NACL 1000ML 1,434 ML IV ONE (06:28)
[2023-06-24 06:43] LABS: BASOPHILS # (AUTO) 0.04 K/uL (0.00-0.20); BASOPHILS % (AUTO) 0.8 % (0.0-5.0); IMMATURE GRANULOCYTE ABSOLUTE 0.04 K/uL (0-1); LYMPHOCYTES # (AUTO) 0.7 K/uL (1.0-4.8); LYMPHOCYTES % (AUTO) 13.9 % (21.0-51.0); MEAN CORPUSCULAR HEMOGLOBIN 28.5 pg (27.0-33.0); MEAN CORPUSCULAR VOLUME 89.1 fL (79-99); MONOCYTES # (AUTO) 0.2 K/uL (0.1-1.0); MONOCYTES % (AUTO) 4.2 % (3.0-13.0); NEUTROPHILS # (AUTO) 3.8 K/uL (1.8-7.7); NEUTROPHILS % (AUTO) 80.3 % (40.0-77.0); PLATELET COUNT (AUTO) 249 K/uL (130-400); RED CELL DISTRIBUTION WIDTH 14.6 % (11.0-15.5); WHITE BLOOD COUNT (AUTO) 4.8 K/uL (4.8-10.8)
[2023-06-24 06:51] LABS: INR 1.28 (0.85-1.15); PROTHROMBIN TIME 14.8 SEC (9.6-11.6)
[2023-06-24 06:52] LABS: PARTIAL THROMBOPLASTIN TIME 30.8 SEC (26.3-35.5)
[2023-06-24] MEDS ORDERED: ALBUMIN (HUMAN) 5% 500 ML IV ONE (07:14)
[2023-06-24] MEDS ORDERED: KETAMINE 50MG/ML SYRINGE 50 MG/ML DISP.SYRIN ONE (07:15)
[2023-06-24] MEDS ORDERED: LIDOCAINE PF 100MG/5ML (2%) SYRINGE 5ML ONE (07:16)
[2023-06-24] MEDS ORDERED: DEXAMETHASONE SOD PHOSPHATE 10MG/ML 1ML VIAL ONE (07:16)
[2023-06-24] MEDS ORDERED: GLYCOPYRROLATE 0.2 MG/ML 5 ML VIAL ONE (07:17)
[2023-06-24] MEDS ORDERED: MIDAZOLAM HCL 1 MG/ML 2ML VIAL ONE (07:17)
[2023-06-24] MEDS ORDERED: ONDANSETRON 4MG INJ ONE (07:17)
[2023-06-24] MEDS ORDERED: SUCCINYLCHOLINE CHLORIDE 20 MG/ML 10 ML VIAL ONE (07:18)
[2023-06-24] MEDS ORDERED: NEOSTIGMINE METHYLSULFATE 1MG/ML IV ONE (07:18)
[2023-06-24] MEDS ORDERED: PROPOFOL 10 MG/ML 20ML VIAL IV ONE (07:18)
[2023-06-24] MEDS ORDERED: ROCURONIUM BROMIDE 10MG/1ML 5ML VL ONE ×2 (07:19→08:30)
[2023-06-24] MEDS ORDERED: FENTANYL CITRATE PF 50 MCG/1 ML 2ML VIAL ONE ×2 (07:19→09:13)
[2023-06-24] MEDS ORDERED: PHENYLEPHRINE HCL 10 MG/ML 1ML VIAL IV ONE ×2 (07:25→09:32)
[2023-06-24] MEDS: MORPHINE 2 MG SYG IVP ONE (07:47)
[2023-06-24] MEDS ORDERED: FENTANYL CITRATE PF 50 MCG/1 ML 5ML AMP IV ONE (08:26)
[2023-06-24 08:32] LABS: ABG BASE EXCESS -7.1 mmol/L (-2.0-3.0); ABG HCO3 18.4 mmol/L (21.0-28.0); ABG OXYGEN SATURATION 99.2 % (95.0-99.0); ABG PCO2 37 mmHg (32-45); ABG PH 7.312 (7.350-7.450); CARBON MONOXIDE 0.5; DEVICE COMMENT OR VENT; HHb 0.8; PO2, ARTERIAL BG 198.2 mmHg (83.0-108.0)
[2023-06-24] MEDS ORDERED: ATROPINE 1MG SYG IVP ONE (09:24)
[2023-06-24] MEDS ORDERED: EPINEPHRINE 1MG/10ML(1:10,000) 0.1 MG/ML SYG ONE (09:25)
[2023-06-24] MEDS ORDERED: EPHEDRINE SULFATE 50 MG/ML AMPULE ONE (09:34)
[2023-06-24] MEDS: MIDAZOLAM 50MG-0.9% NS 50ML 50 ML IV SCH (10:20)
[2023-06-24] MEDS: FENTANYL 1000MCG+NS 100ML 100 ML IV SCH (10:27)
[2023-06-24] MEDS: FLUCONAZOLE 400 MG/NS 200 ML 200 ML IV SCH (10:28)
[2023-06-24] MEDS ORDERED: MIDAZOLAM HCL 50 MG in 0.9%NACL 50ML 50 ML IV SCH (10:30)
[2023-06-24] MEDS ORDERED: FENTANYL CITRATE PF 0.05 MG/ML 1,000 MCG in 0.9%NACL 100ML 100 ML IV PRN (10:30)
[2023-06-24 11:09] LABS: ABG HCO3 19.1 mmol/L (21.0-28.0); ABG OXYGEN SATURATION 95.2 % (95.0-99.0); ABG PCO2 41 mmHg (32-45); ABG PH 7.288 (7.350-7.450); HHb 4.7; VENT MODE, BG AC (ROOM AIR)
[2023-06-24] MEDS: PHENYLEPHRINE HCL 10 MG in 0.9% NACL 250ML 250 ML IV PRN (11:44)
[2023-06-24 14:09] LABS: ABG BASE EXCESS -4.9 mmol/L (-2.0-3.0); ABG HCO3 21.5 mmol/L (21.0-28.0); ABG OXYGEN SATURATION 87.4 % (95.0-99.0); ABG PCO2 44 mmHg (32-45); ABG PH 7.303 (7.350-7.450); CARBON MONOXIDE 0.7; HHb 12.5; VENT MODE, BG AC (ROOM AIR)
[2023-06-24 14:15] LABS: ABG BASE EXCESS -5.2 mmol/L (-2.0-3.0); ABG HCO3 19.9 mmol/L (21.0-28.0); ABG OXYGEN SATURATION 98.2 % (95.0-99.0); ABG PCO2 37 mmHg (32-45); ABG PH 7.343 (7.350-7.450); CARBON MONOXIDE 0.7; HHb 1.8; PO2, ARTERIAL BG 116.6 mmHg (83.0-108.0); VENT MODE, BG AC (ROOM AIR)
[2023-06-24] MEDS: ALBUMIN (HUMAN) 5% 250 ML IV SCH ×2 (14:36→14:58)
[2023-06-24] MEDS: CALCIUM GLUC 1GM 1 GM in 0.9%NACL 100ML 100 ML IV SCH (15:12)
[2023-06-24] MEDS: PHENYLEPHRINE HCL 50 MG in 0.9% NACL 250ML 245 ML IV PRN (18:24)
[2023-06-24 18:28] LABS: APPEARANCE,URINE CLEAR (CLEAR); BILIRUBIN,URINE NEGATIVE (NEGATIVE); COLOR,URINE YELLOW (YELLOW); GLUCOSE, URINE (UA) NEGATIVE (NEGATIVE); KETONES,URINE 10 mg/dL (NEGATIVE); LEUKOCYTE ESTERASE ,URINE NEGATIVE Leu/uL (NEGATIVE); NITRATE,URINE NEGATIVE (NEGATIVE); OCCULT BLOOD,URINE LARGE (NEGATIVE); PROTEIN,URINE 70 mg/dL (NEGATIVE); UROBILINOGEN,URINE 0.2 mg/dL (0.2-1.0)
[2023-06-24 18:30] LABS: ADD UA MICROSCOPIC YES
[2023-06-24 18:39] LABS: MUCUS,URINE RARE LPF (None Seen); RBC,URINE 26-50 /HPF (0-1); SQUAMOUS EPITHELIAL CELL,UR RARE /HPF (0-2); YEAST,URINE BUDDING FEW /HPF (None Seen)
[2023-06-24 19:47] LABS: MAGNESIUM 1.3 mg/dL (1.80-2.40)
[2023-06-24 20:02] LABS: POTASSIUM 3.8 mmol/L (3.5-5.1)
[2023-06-24 20:03] LABS: CREATININE 0.9 mg/dL (0.5-1.5)
[2023-06-24] MEDS: PANTOPRAZOLE 40 MG/VIAL IVP ONE (20:32)
[2023-06-24] MEDS: ACETAMINOPHEN 650 MG SUPPOSITORY RC PRN (22:21)
[2023-06-25] VITALS (147 sets, daily range): BP systolic 90–127; BP diastolic 45–77; PULSE 77–112; RESP 10–25; TEMP 98.5–99.2; O2SAT 93–99
[2023-06-25] MEDS: IPRATROPIUM/ALBUTEROL SULFATE 3 ML SOLUTION IH SCH (01:50)
[2023-06-25 04:13] LABS: BASOPHILS # (AUTO) 0.02 K/uL (0.00-0.20); BASOPHILS % (AUTO) 0.3 % (0.0-5.0); EOSINOPHILS # (AUTO) 0.02 K/uL (0.00-0.70); EOSINOPHILS % (AUTO) 0.3 % (0.0-8.0); HEMATOCRIT 31.1 % (36-48); IMMATURE GRANULOCYTE ABSOLUTE 0.08 K/uL (0-1); LYMPHOCYTES # (AUTO) 0.4 K/uL (1.0-4.8); LYMPHOCYTES % (AUTO) 6.2 % (21.0-51.0); MEAN CORPUSCULAR HEMOGLOBIN 28.2 pg (27.0-33.0); MEAN CORPUSCULAR HGB CONC 32.8 g/dL (32.0-36.0); MEAN CORPUSCULAR VOLUME 85.9 fL (79-99); MONOCYTES # (AUTO) 0.2 K/uL (0.1-1.0); MONOCYTES % (AUTO) 3.2 % (3.0-13.0); NEUTROPHILS # (AUTO) 5.6 K/uL (1.8-7.7); NEUTROPHILS % (AUTO) 88.7 % (40.0-77.0); PLATELET COUNT (AUTO) 211 K/uL (130-400); RED BLOOD CELL COUNT(AUTO) 3.62 MIL/uL (4.00-5.50); RED CELL DISTRIBUTION WIDTH 15.6 % (11.0-15.5); WHITE BLOOD COUNT (AUTO) 6.3 K/uL (4.8-10.8)
[2023-06-25 04:29] LABS: ALBUMIN 1.9 g/dL (3.5-5.0); BILIRUBIN,TOTAL 1.4 mg/dL (0.2-1.0); CREATININE 0.8 mg/dL (0.5-1.5); MAGNESIUM 1.5 mg/dL (1.80-2.40); TOTAL PROTEIN, SERUM 4.8 g/dL (6.0-8.3)
[2023-06-25] MEDS: MAGNESIUM 2GM PREMIX 50ML 50 ML IV ONE (06:08)
[2023-06-25 07:19] LABS: ABG BASE EXCESS -4.7 mmol/L (-2.0-3.0); ABG OXYGEN SATURATION 95.4 % (95.0-99.0); ABG PCO2 41 mmHg (32-45); ABG PH 7.329 (7.350-7.450); PO2, ARTERIAL BG 82.3 mmHg (83.0-108.0); VENT MODE, BG AC (ROOM AIR)
[2023-06-25] MEDS: PANTOPRAZOLE 40 MG/VIAL IVP SCH (08:35)
[2023-06-25] MEDS: FUROSEMIDE 20MG VIAL IV SCH ×2 (09:33→19:51)
[2023-06-25] MEDS: METHYLNALTREXONE BROMIDE 12 MG/0.6 ML VIAL SQ SCH (14:03)
[2023-06-25] MEDS: MORPHINE 2 MG SYG IVP PRN (14:22)
[2023-06-25] MEDS: M.V.I. IV [ADULT] 10 ML in CLINIMIX-E 5%AA /D15%W 2000ML 2,000 ML IV ONE (14:51)
[2023-06-26] VITALS (93 sets, daily range): BP systolic 99–151; BP diastolic 60–91; PULSE 73–101; RESP 11–20; TEMP 99.4–99.8; O2SAT 96–97
[2023-06-26 05:01] LABS: EOSINOPHILS # (AUTO) 0.01 K/uL (0.00-0.70); EOSINOPHILS % (AUTO) 0.1 % (0.0-8.0); HEMATOCRIT 29.7 % (36-48); IMMATURE GRANULOCYTE ABSOLUTE 0.63 K/uL (0-1); LYMPHOCYTES # (AUTO) 0.7 K/uL (1.0-4.8); LYMPHOCYTES % (AUTO) 7.9 % (21.0-51.0); MEAN CORPUSCULAR HEMOGLOBIN 28.4 pg (27.0-33.0); MEAN CORPUSCULAR HGB CONC 31.6 g/dL (32.0-36.0); MEAN CORPUSCULAR VOLUME 89.7 fL (79-99); MONOCYTES # (AUTO) 0.3 K/uL (0.1-1.0); MONOCYTES % (AUTO) 3.5 % (3.0-13.0); NEUTROPHILS # (AUTO) 6.7 K/uL (1.8-7.7); NEUTROPHILS % (AUTO) 80.9 % (40.0-77.0); NUCLEATED RED BLOOD CELLS 0.8 % (0.0-0.19); PLATELET COUNT (AUTO) 142 K/uL (130-400); RED BLOOD CELL COUNT(AUTO) 3.31 MIL/uL (4.00-5.50); RED CELL DISTRIBUTION WIDTH 15.8 % (11.0-15.5); WHITE BLOOD COUNT (AUTO) 8.3 K/uL (4.8-10.8)
[2023-06-26 05:13] LABS: ALBUMIN 1.6 g/dL (3.5-5.0); BILIRUBIN,TOTAL 0.9 mg/dL (0.2-1.0); CREATININE 0.8 mg/dL (0.5-1.5); MAGNESIUM 2.5 mg/dL (1.80-2.40); POTASSIUM 3.8 mmol/L (3.5-5.1); TOTAL PROTEIN, SERUM 5.3 g/dL (6.0-8.3)
[2023-06-26 07:48] LABS: ABG BASE EXCESS 3.8 mmol/L (-2.0-3.0); ABG HCO3 28.7 mmol/L (21.0-28.0); ABG OXYGEN SATURATION 96.2 % (95.0-99.0); ABG PCO2 44 mmHg (32-45); ABG PH 7.431 (7.350-7.450); DEVICE COMMENT RN ARACLEY; PO2, ARTERIAL BG 80.7 mmHg (83.0-108.0); VENT MODE, BG AC (ROOM AIR)
[2023-06-26] MEDS: FUROSEMIDE 40MG VIAL IV SCH (08:06)
[2023-06-26] MEDS: ENOXAPARIN SODIUM 40 MG/0.4 ML SYRINGE SQ SCH (08:07)
[2023-06-26] MEDS ORDERED: FAT EMULSIONS 20% 250ML 250 ML IV SCH (10:00)
[2023-06-26] MEDS: POTASSIUM CHLORIDE 20MEQ/100ML 100 ML IV PRN (18:42)
[2023-06-26] MEDS ORDERED: PHARMACY COMMUNICATION MISC SCH (21:00)
[2023-06-26] MEDS: METHYLNALTREXONE BROMIDE 12 MG/0.6 ML VIAL SQ SCH (22:38)
[2023-06-27] VITALS (83 sets, daily range): BP systolic 0–151; BP diastolic 0–102; PULSE 67–104; RESP 14–42; TEMP 99.4–101.5; O2SAT 95–99
[2023-06-27 04:36] LABS: ALBUMIN 1.5 g/dL (3.5-5.0); BILIRUBIN,TOTAL 0.8 mg/dL (0.2-1.0); CREATININE 0.7 mg/dL (0.5-1.5); MAGNESIUM 2.4 mg/dL (1.80-2.40); TOTAL PROTEIN, SERUM 5.3 g/dL (6.0-8.3)
[2023-06-27 05:35] LABS: BASOPHILS # (AUTO) 0.06 K/uL (0.00-0.20); BASOPHILS % (AUTO) 1.2 % (0.0-5.0); EOSINOPHILS # (AUTO) 0.06 K/uL (0.00-0.70); EOSINOPHILS % (AUTO) 1.2 % (0.0-8.0); HEMATOCRIT 25.6 % (36-48); IMMATURE GRANULOCYTE ABSOLUTE 0.13 K/uL (0-1); LYMPHOCYTES # (AUTO) 0.8 K/uL (1.0-4.8); LYMPHOCYTES % (AUTO) 15.9 % (21.0-51.0); MEAN CORPUSCULAR HEMOGLOBIN 28.3 pg (27.0-33.0); MEAN CORPUSCULAR HGB CONC 32.8 g/dL (32.0-36.0); MEAN CORPUSCULAR VOLUME 86.2 fL (79-99); MONOCYTES # (AUTO) 0.2 K/uL (0.1-1.0); MONOCYTES % (AUTO) 3.7 % (3.0-13.0); NEUTROPHILS # (AUTO) 3.9 K/uL (1.8-7.7); NEUTROPHILS % (AUTO) 75.5 % (40.0-77.0); PLATELET COUNT (AUTO) 139 K/uL (130-400); RED BLOOD CELL COUNT(AUTO) 2.97 MIL/uL (4.00-5.50); RED CELL DISTRIBUTION WIDTH 15.6 % (11.0-15.5); WHITE BLOOD COUNT (AUTO) 5.2 K/uL (4.8-10.8)
[2023-06-27 07:55] LABS: ABG BASE EXCESS 6.4 mmol/L (-2.0-3.0); ABG HCO3 30.8 mmol/L (21.0-28.0); ABG OXYGEN SATURATION 95.7 % (95.0-99.0); ABG PCO2 43 mmHg (32-45); ABG PH 7.473 (7.350-7.450); PO2, ARTERIAL BG 74.2 mmHg (83.0-108.0); VENT MODE, BG AC-VC (ROOM AIR)
[2023-06-27] MEDS ORDERED: POTASSIUM CHLORIDE 10% ELIXIR 20 MEQ/15 ML UDCUP PO PRN (08:00)
[2023-06-27] MEDS ORDERED: MAGNESIUM 2GM PREMIX 50ML 50 ML IV PRN (08:00)
[2023-06-27] MEDS ORDERED: KCL 20 MEQ ERTAB PO PRN (08:00)
[2023-06-27] MEDS ORDERED: GLUCAGON 1MG KIT 1 MG ML IM PRN (08:00)
[2023-06-27] MEDS ORDERED: POTASSIUM CHLORIDE 20MEQ/100ML 100 ML IV PRN ×2 (08:00)
[2023-06-27] MEDS ORDERED: DEXTROSE 50%-WATER 50 ML DISP.SYRIN IV PRN (08:00)
[2023-06-27 08:44] LABS: INR <= 0.93 (0.85-1.15)
[2023-06-27 08:46] LABS: PARTIAL THROMBOPLASTIN TIME 26.6 SEC (26.3-35.5)
[2023-06-27] MEDS: METHYLNALTREXONE BROMIDE 12 MG/0.6 ML VIAL SQ ONE (08:59)
[2023-06-27] MEDS: M.V.I. IV [ADULT] 10 ML in CLINIMIX-E 5%AA /D15%W 2000ML 2,000 ML IV ONE (14:52)
[2023-06-27] MEDS ORDERED: FENTANYL CITRATE PF 50 MCG/1 ML 2ML VIAL IVP PRN (15:30)
[2023-06-27] MEDS ORDERED: VANCOMYCIN PROTOCOL PER PHARMACY IV SCH (16:00)
[2023-06-27] MEDS: VANCOMYCIN 1.5 GM/250 ML BAG 250 ML IV SCH (16:36)
[2023-06-28] VITALS (79 sets, daily range): BP systolic 91–162; BP diastolic 36–99; PULSE 86–127; RESP 14–39; TEMP 99.6–100; O2SAT 97–100
[2023-06-28 05:03] LABS: BASOPHILS # (AUTO) 0.09 K/uL (0.00-0.20); BASOPHILS % (AUTO) 1.4 % (0.0-5.0); EOSINOPHILS # (AUTO) 0.06 K/uL (0.00-0.70); EOSINOPHILS % (AUTO) 0.9 % (0.0-8.0); IMMATURE GRANULOCYTE ABSOLUTE 0.18 K/uL (0-1); LYMPHOCYTES # (AUTO) 0.9 K/uL (1.0-4.8); LYMPHOCYTES % (AUTO) 13.2 % (21.0-51.0); MEAN CORPUSCULAR HEMOGLOBIN 28.1 pg (27.0-33.0); MEAN CORPUSCULAR VOLUME 85.2 fL (79-99); MONOCYTES # (AUTO) 0.2 K/uL (0.1-1.0); MONOCYTES % (AUTO) 3.6 % (3.0-13.0); NEUTROPHILS # (AUTO) 5.1 K/uL (1.8-7.7); NEUTROPHILS % (AUTO) 78.2 % (40.0-77.0); NUCLEATED RED BLOOD CELLS 0.3 % (0.0-0.19); PLATELET COUNT (AUTO) 136 K/uL (130-400); RED BLOOD CELL COUNT(AUTO) 3.52 MIL/uL (4.00-5.50); RED CELL DISTRIBUTION WIDTH 15.5 % (11.0-15.5); WHITE BLOOD COUNT (AUTO) 6.6 K/uL (4.8-10.8)
[2023-06-28 05:13] LABS: ALBUMIN 1.5 g/dL (3.5-5.0); BILIRUBIN,TOTAL 2.2 mg/dL (0.2-1.0); CREATININE 0.5 mg/dL (0.5-1.0); MAGNESIUM 1.6 mg/dL (1.80-2.40); POTASSIUM 3.2 mmol/L (3.5-5.1); TOTAL PROTEIN, SERUM 5.6 g/dL (6.0-8.3)
[2023-06-28] MEDS: MAGNESIUM 2GM PREMIX 50ML 50 ML IV PRN (05:20)
[2023-06-28 07:43] LABS: ABG BASE EXCESS 4.1 mmol/L (-2.0-3.0); ABG HCO3 27.3 mmol/L (21.0-28.0); ABG OXYGEN SATURATION 98.3 % (95.0-99.0); ABG PCO2 37 mmHg (32-45); ABG PH 7.491 (7.350-7.450); PO2, ARTERIAL BG 109.8 mmHg (83.0-108.0); VENT MODE, BG AC-VC (ROOM AIR)
[2023-06-28] MEDS: FAT EMULSIONS 20% 250ML 250 ML IV SCH (10:12)
[2023-06-28] MEDS ORDERED: COMPOUND IV MISC 1 EACH IVSOLN MISC PRN (11:00)
[2023-06-28 11:22] LABS: ABG BASE EXCESS 7.1 mmol/L (-2.0-3.0); ABG HCO3 30.6 mmol/L (21.0-28.0); ABG OXYGEN SATURATION 97.7 % (95.0-99.0); ABG PCO2 39 mmHg (32-45); ABG PH 7.508 (7.350-7.450); CPAP, BG 5 cm H2O; DEVICE COMMENT LR; PO2, ARTERIAL BG 92.6 mmHg (83.0-108.0); VENT MODE, BG CPAP 5-5 (ROOM AIR)
[2023-06-28] MEDS: MEROPENEM 1 GM in 0.9%NACL 100ML 100 ML IVPB SCH (11:25)
[2023-06-28 11:52] LABS: THYROID STIMULATING HORMONE 2.63 uIU/mL (0.36-3.74)
[2023-06-28 11:55] LABS: AMMONIA < 10 umol/L (11-32)
[2023-06-28] MEDS ORDERED: COMPOUND IV REFRIGERATED 1 EACH IVSOLN MISC PRN (13:00)
[2023-06-28] MEDS: FUROSEMIDE 40MG VIAL IV SCH (16:17)
[2023-06-28] MEDS: M.V.I. IV [ADULT] 10 ML in CLINIMIX-E 5%AA /D15%W 2000ML 2,000 ML IV ONE (16:53)
[2023-06-28] MEDS: VANCOMYCIN 1.75 GM/250 ML BAG 250 ML IV SCH (17:58)
[2023-06-29] VITALS (46 sets, daily range): BP systolic 94–131; BP diastolic 40–75; PULSE 90–125; RESP 14–46; O2SAT 96–100
[2023-06-29] MEDS: MORPHINE 2 MG SYG IVP PRN (01:54)
[2023-06-29 04:38] LABS: BASOPHILS # (AUTO) 0.03 K/uL (0.00-0.20); BASOPHILS % (AUTO) 0.3 % (0.0-5.0); EOSINOPHILS # (AUTO) 0.09 K/uL (0.00-0.70); EOSINOPHILS % (AUTO) 0.9 % (0.0-8.0); HEMATOCRIT 33.3 % (36-48); IMMATURE GRANULOCYTE ABSOLUTE 0.25 K/uL (0-1); LYMPHOCYTES # (AUTO) 1.1 K/uL (1.0-4.8); LYMPHOCYTES % (AUTO) 11.8 % (21.0-51.0); MEAN CORPUSCULAR HEMOGLOBIN 27.7 pg (27.0-33.0); MEAN CORPUSCULAR VOLUME 83.9 fL (79-99); MONOCYTES # (AUTO) 0.3 K/uL (0.1-1.0); NEUTROPHILS # (AUTO) 7.7 K/uL (1.8-7.7); NEUTROPHILS % (AUTO) 81.4 % (40.0-77.0); PLATELET COUNT (AUTO) 137 K/uL (130-400); RED BLOOD CELL COUNT(AUTO) 3.97 MIL/uL (4.00-5.50); RED CELL DISTRIBUTION WIDTH 15.4 % (11.0-15.5); WHITE BLOOD COUNT (AUTO) 9.5 K/uL (4.8-10.8)
[2023-06-29 05:11] LABS: ALBUMIN 1.6 g/dL (3.5-5.0); BILIRUBIN,TOTAL 2.4 mg/dL (0.2-1.0); CREATININE 0.7 mg/dL (0.5-1.0); POTASSIUM 3.2 mmol/L (3.5-5.1); TOTAL PROTEIN, SERUM 5.9 g/dL (6.0-8.3)
[2023-06-29] MEDS: M.V.I. IV [ADULT] 10 ML in CLINIMIX-E 5%AA /D15%W 2000ML 2,000 ML IV ONE (14:02)
[2023-06-29] MEDS: LACTATED RINGERS 1000ML 1,000 ML IV ONE (15:12)
[2023-06-29 16:24] LABS: MAGNESIUM 1.6 mg/dL (1.80-2.40); POTASSIUM 3.5 mmol/L (3.5-5.1); VANCOMYCIN TROUGH 8.6 UG/ML (10.0-20.0)
[2023-06-29] MEDS ORDERED: ACETAMINOPHEN 325 MG TAB PO PRN (17:00)
[2023-06-29] MEDS: FUROSEMIDE 40MG VIAL IV SCH (20:00)
[2023-06-29] MEDS: LACTATED RINGERS 1000ML IV ONE (20:35)
[2023-06-30] VITALS (30 sets, daily range): BP systolic 104–132; BP diastolic 43–69; PULSE 98–129; RESP 18–37; O2SAT 96–98
[2023-06-30] MEDS: VANCOMYCIN 1.25 GM/250 ML BAG 250 ML IV SCH (01:00)
[2023-06-30 05:17] LABS: ALBUMIN 1.5 g/dL (3.5-5.0); BILIRUBIN,TOTAL 2.6 mg/dL (0.2-1.0); CREATININE 0.6 mg/dL (0.5-1.0); POTASSIUM 3.7 mmol/L (3.5-5.1); TOTAL PROTEIN, SERUM 5.8 g/dL (6.0-8.3)
[2023-06-30 09:49] LABS: HEMATOCRIT 32.7 % (36-48); MEAN CORPUSCULAR HEMOGLOBIN 28.5 pg (27.0-33.0); MEAN CORPUSCULAR HGB CONC 32.7 g/dL (32.0-36.0); RED BLOOD CELL COUNT(AUTO) 3.76 MIL/uL (4.00-5.50); RED CELL DISTRIBUTION WIDTH 15.6 % (11.0-15.5); WHITE BLOOD COUNT (AUTO) 15.1 K/uL (4.8-10.8)
[2023-06-30] MEDS: ACETYLCYSTEINE 10% 100MG/ML 4ML VIAL IH SCH (14:34)
[2023-06-30] MEDS: IPRATROPIUM 0.5 MG/2.5 ML INH IH SCH (14:34)
[2023-06-30] MEDS: CLINIMIX-E 5%AA /D15%W 2000ML 2,000 ML IV ONE (18:22)
[2023-06-30] MEDS: METOPROLOL TARTRATE 1 MG/ML 5ML VIAL IV SCH (22:09)
[2023-06-30] MEDS: ACETAMINOPHEN 1,000 MG/100 ML VIAL IV SCH (23:25)
[2023-06-30] MEDS: ACETAMINOPHEN 1,000 MG/100 ML VIAL IV ONE (23:47)
[2023-07-01] VITALS (58 sets, daily range): BP systolic 90–153; BP diastolic 49–119; PULSE 88–127; RESP 18–75; O2SAT 94–98
[2023-07-01 05:42] LABS: ALBUMIN 1.4 g/dL (3.5-5.0); BILIRUBIN,TOTAL 3.5 mg/dL (0.2-1.0); CREATININE 0.6 mg/dL (0.5-1.0); POTASSIUM 3.9 mmol/L (3.5-5.1); TOTAL PROTEIN, SERUM 5.9 g/dL (6.0-8.3)
[2023-07-01 08:23] LABS: BASOPHILS # (AUTO) 0.06 K/uL (0.00-0.20); BASOPHILS % (AUTO) 0.4 % (0.0-5.0); EOSINOPHILS # (AUTO) 0.04 K/uL (0.00-0.70); EOSINOPHILS % (AUTO) 0.3 % (0.0-8.0); HEMATOCRIT 30.7 % (36-48); IMMATURE GRANULOCYTE ABSOLUTE 0.24 K/uL (0-1); LYMPHOCYTES % (AUTO) 6.5 % (21.0-51.0); MEAN CORPUSCULAR HEMOGLOBIN 28.2 pg (27.0-33.0); MEAN CORPUSCULAR HGB CONC 33.9 g/dL (32.0-36.0); MEAN CORPUSCULAR VOLUME 83.2 fL (79-99); MONOCYTES # (AUTO) 0.7 K/uL (0.1-1.0); MONOCYTES % (AUTO) 4.6 % (3.0-13.0); NEUTROPHILS # (AUTO) 13.2 K/uL (1.8-7.7); NEUTROPHILS % (AUTO) 86.6 % (40.0-77.0); PLATELET COUNT (AUTO) 255 K/uL (130-400); RED BLOOD CELL COUNT(AUTO) 3.69 MIL/uL (4.00-5.50); RED CELL DISTRIBUTION WIDTH 15.5 % (11.0-15.5); WHITE BLOOD COUNT (AUTO) 15.2 K/uL (4.8-10.8)
[2023-07-01] MEDS ORDERED: FUROSEMIDE 40MG VIAL IV SCH (09:00)
[2023-07-01] MEDS: FAT EMULSIONS 20% 250ML 250 ML IV SCH (09:17)
[2023-07-01 09:28] LABS: ABG BASE EXCESS 2.7 mmol/L (-2.0-3.0); ABG HCO3 25.6 mmol/L (21.0-28.0); ABG OXYGEN SATURATION 90.9 % (95.0-99.0); ABG PCO2 34 mmHg (32-45); ABG PH 7.491 (7.350-7.450); DEVICE COMMENT MIRKA RN LB; PO2, ARTERIAL BG 54.3 mmHg (83.0-108.0); VENT MODE, BG 1L NC (ROOM AIR)
[2023-07-01 09:32] LABS: APPEARANCE,URINE CLEAR (CLEAR); BILIRUBIN,URINE 2 mg/dL (NEGATIVE); COLOR,URINE DARK-YELLOW (YELLOW); GLUCOSE, URINE (UA) NEGATIVE (NEGATIVE); KETONES,URINE NEGATIVE (NEGATIVE); LEUKOCYTE ESTERASE ,URINE NEGATIVE Leu/uL (NEGATIVE); NITRATE,URINE NEGATIVE (NEGATIVE); OCCULT BLOOD,URINE NEGATIVE (NEGATIVE); PROTEIN,URINE 30 mg/dL (NEGATIVE)
[2023-07-01 09:33] LABS: ADD UA MICROSCOPIC YES
[2023-07-01 09:39] LABS: BACTERIA,URINE RARE /HPF (None Seen); MUCUS,URINE RARE LPF (None Seen); SQUAMOUS EPITHELIAL CELL,UR RARE /HPF (0-2)
[2023-07-01] MEDS: M.V.I. IV [ADULT] 10 ML in CLINIMIX-E 5%AA /D15%W 2000ML 2,000 ML IV ONE (16:57)
[2023-07-01] MEDS: HYDROMORPHONE 1 MG INJ ONE (19:00)
[2023-07-01 20:28] LABS: BODY FLUID RBC 1296 /cu. mm.; BODY FLUID WBC 71112 /cu. mm.
[2023-07-01 20:29] LABS: APPEARANCE BODY FLUID TURBID (CLEAR); COLOR,BODY FLUID YELLOW (LT YELLOW); SPECIMENTYPE,BODY FLUID OTHER; TOTAL VOLUME,BODY FLUID 15 mL
[2023-07-01 21:21] LABS: BF LYMPHOCYTE 16 %; BF MONOCYTE 5 %; BF TOTAL CELLS COUNTED 100
[2023-07-02] VITALS (33 sets, daily range): BP systolic 88–140; BP diastolic 35–90; PULSE 85–117; RESP 27–41; O2SAT 95–98
[2023-07-02 04:25] LABS: ALBUMIN 1.4 g/dL (3.5-5.0); BILIRUBIN,TOTAL 3.8 mg/dL (0.2-1.0); CREATININE 0.4 mg/dL (0.5-1.0); POTASSIUM 3.7 mmol/L (3.5-5.1); TOTAL PROTEIN, SERUM 5.9 g/dL (6.0-8.3)
[2023-07-02 05:37] LABS: BASOPHILS # (AUTO) 0.06 K/uL (0.00-0.20); BASOPHILS % (AUTO) 0.4 % (0.0-5.0); EOSINOPHILS # (AUTO) 0.04 K/uL (0.00-0.70); EOSINOPHILS % (AUTO) 0.3 % (0.0-8.0); HEMATOCRIT 29.6 % (36-48); IMMATURE GRANULOCYTE ABSOLUTE 0.21 K/uL (0-1); LYMPHOCYTES # (AUTO) 1.1 K/uL (1.0-4.8); LYMPHOCYTES % (AUTO) 8.3 % (21.0-51.0); MEAN CORPUSCULAR HEMOGLOBIN 27.8 pg (27.0-33.0); MEAN CORPUSCULAR HGB CONC 32.8 g/dL (32.0-36.0); MEAN CORPUSCULAR VOLUME 84.8 fL (79-99); MONOCYTES # (AUTO) 0.8 K/uL (0.1-1.0); MONOCYTES % (AUTO) 6.2 % (3.0-13.0); NEUTROPHILS # (AUTO) 11.2 K/uL (1.8-7.7); NEUTROPHILS % (AUTO) 83.2 % (40.0-77.0); PLATELET COUNT (AUTO) 305 K/uL (130-400); RED BLOOD CELL COUNT(AUTO) 3.49 MIL/uL (4.00-5.50); RED CELL DISTRIBUTION WIDTH 15.3 % (11.0-15.5); WHITE BLOOD COUNT (AUTO) 13.5 K/uL (4.8-10.8)
[2023-07-02] MEDS: BISACODYL 10 MG SUPP.RECT RC PRN (09:15)
[2023-07-02] MEDS ORDERED: KETOROLAC 15MG/ML VIAL (15MG/ML) IM PRN (11:00)
[2023-07-02] MEDS: KETOROLAC 15MG/ML VIAL (15MG/ML) IM PRN (12:40)
[2023-07-02] MEDS ORDERED: IOHEXOL-350 75 ML VIAL IV ONE (18:30)
[2023-07-02] MEDS: M.V.I. IV [ADULT] 10 ML, MULTITRACE-4 ADULT 10ML VIAL 3 ML in CLINIMIX-E 5%AA /D15%W 2... IV ONE (20:25)
[2023-07-02] MEDS: PROMETHAZINE HCL 25 MG/ML 1ML AMPULE IM PRN (22:09)
[2023-07-03] VITALS (16 sets, daily range): BP systolic 99–127; BP diastolic 59–76; PULSE 101–121; RESP 18–31; O2SAT 93–97
[2023-07-03 07:44] LABS: BASOPHILS # (AUTO) 0.07 K/uL (0.00-0.20); BASOPHILS % (AUTO) 0.5 % (0.0-5.0); EOSINOPHILS # (AUTO) 0.03 K/uL (0.00-0.70); EOSINOPHILS % (AUTO) 0.2 % (0.0-8.0); HEMATOCRIT 28.1 % (36-48); IMMATURE GRANULOCYTE ABSOLUTE 0.16 K/uL (0-1); LYMPHOCYTES # (AUTO) 0.9 K/uL (1.0-4.8); LYMPHOCYTES % (AUTO) 6.8 % (21.0-51.0); MEAN CORPUSCULAR HGB CONC 32.7 g/dL (32.0-36.0); MEAN CORPUSCULAR VOLUME 85.7 fL (79-99); NEUTROPHILS # (AUTO) 11.6 K/uL (1.8-7.7); NEUTROPHILS % (AUTO) 84.3 % (40.0-77.0); PLATELET COUNT (AUTO) 459 K/uL (130-400); RED BLOOD CELL COUNT(AUTO) 3.28 MIL/uL (4.00-5.50); RED CELL DISTRIBUTION WIDTH 15.5 % (11.0-15.5); WHITE BLOOD COUNT (AUTO) 13.7 K/uL (4.8-10.8)
[2023-07-03 08:14] LABS: ALBUMIN 1.5 g/dL (3.5-5.0); BILIRUBIN,TOTAL 3.1 mg/dL (0.2-1.0); CREATININE 0.6 mg/dL (0.5-1.0); POTASSIUM 3.8 mmol/L (3.5-5.1); TOTAL PROTEIN, SERUM 6.5 g/dL (6.0-8.3)
[2023-07-03] MEDS: FUROSEMIDE 40MG VIAL IV SCH (11:46)
[2023-07-03] MEDS: KETOROLAC 15MG/ML VIAL (15MG/ML) IV PRN (13:30)
[2023-07-03] MEDS: LORAZEPAM 2 MG/ML 1 ML VIAL IVP PRN (15:01)
[2023-07-03] MEDS: ACETAMINOPHEN 325 MG TAB PO PRN (17:57)
[2023-07-03] MEDS: M.V.I. IV [ADULT] 10 ML, MULTITRACE-4 ADULT 10ML VIAL 3 ML in CLINIMIX-E 5%AA /D15%W 2... IV ONE (23:08)
[2023-07-04] VITALS (15 sets, daily range): BP systolic 117–138; BP diastolic 66–98; PULSE 99–137; RESP 16–20; O2SAT 94–96
[2023-07-04 04:07] LABS: BASOPHILS # (AUTO) 0.06 K/uL (0.00-0.20); BASOPHILS % (AUTO) 0.5 % (0.0-5.0); EOSINOPHILS # (AUTO) 0.03 K/uL (0.00-0.70); EOSINOPHILS % (AUTO) 0.2 % (0.0-8.0); HEMATOCRIT 27.4 % (36-48); IMMATURE GRANULOCYTE ABSOLUTE 0.18 K/uL (0-1); LYMPHOCYTES # (AUTO) 1.3 K/uL (1.0-4.8); LYMPHOCYTES % (AUTO) 9.6 % (21.0-51.0); MEAN CORPUSCULAR HEMOGLOBIN 28.1 pg (27.0-33.0); MEAN CORPUSCULAR HGB CONC 33.6 g/dL (32.0-36.0); MEAN CORPUSCULAR VOLUME 83.8 fL (79-99); MONOCYTES % (AUTO) 7.2 % (3.0-13.0); NEUTROPHILS # (AUTO) 10.7 K/uL (1.8-7.7); NEUTROPHILS % (AUTO) 81.1 % (40.0-77.0); PLATELET COUNT (AUTO) 644 K/uL (130-400); RED BLOOD CELL COUNT(AUTO) 3.27 MIL/uL (4.00-5.50); RED CELL DISTRIBUTION WIDTH 15.5 % (11.0-15.5); WHITE BLOOD COUNT (AUTO) 13.2 K/uL (4.8-10.8)
[2023-07-04 04:36] LABS: ALBUMIN 1.5 g/dL (3.5-5.0); BILIRUBIN,TOTAL 3.6 mg/dL (0.2-1.0); CREATININE 0.6 mg/dL (0.5-1.0); POTASSIUM 4.3 mmol/L (3.5-5.1); TOTAL PROTEIN, SERUM 6.7 g/dL (6.0-8.3)
[2023-07-04] MEDS: ALTEPLASE 2MG VIAL 2 MG/VIAL VIAL IVCATH ONE (15:51)
[2023-07-04] MEDS: M.V.I. IV [ADULT] 10 ML, MULTITRACE-4 ADULT 10ML VIAL 3 ML in CLINIMIX-E 5%AA /D15%W 2... IV ONE (18:33)
[2023-07-04] MEDS: IPRATROPIUM 0.5 MG/2.5 ML INH IH PRN (18:36)
[2023-07-04] MEDS: ENOXAPARIN SODIUM 40 MG/0.4 ML SYRINGE SQ SCH (21:54)
[2023-07-05] VITALS (14 sets, daily range): BP systolic 98–126; BP diastolic 42–73; PULSE 104–128; RESP 17–20; O2SAT 94–96
[2023-07-05 02:58] LABS: BASOPHILS # (AUTO) 0.08 K/uL (0.00-0.20); BASOPHILS % (AUTO) 0.6 % (0.0-5.0); EOSINOPHILS # (AUTO) 0.11 K/uL (0.00-0.70); EOSINOPHILS % (AUTO) 0.8 % (0.0-8.0); IMMATURE GRANULOCYTE ABSOLUTE 0.14 K/uL (0-1); LYMPHOCYTES # (AUTO) 1.9 K/uL (1.0-4.8); LYMPHOCYTES % (AUTO) 14.3 % (21.0-51.0); MEAN CORPUSCULAR HEMOGLOBIN 27.9 pg (27.0-33.0); MEAN CORPUSCULAR HGB CONC 32.7 g/dL (32.0-36.0); MEAN CORPUSCULAR VOLUME 85.2 fL (79-99); MONOCYTES % (AUTO) 7.4 % (3.0-13.0); NEUTROPHILS # (AUTO) 10.1 K/uL (1.8-7.7); NEUTROPHILS % (AUTO) 75.8 % (40.0-77.0); PLATELET COUNT (AUTO) 689 K/uL (130-400); RED BLOOD CELL COUNT(AUTO) 3.05 MIL/uL (4.00-5.50); RED CELL DISTRIBUTION WIDTH 15.2 % (11.0-15.5); WHITE BLOOD COUNT (AUTO) 13.3 K/uL (4.8-10.8)
[2023-07-05 03:16] LABS: ALBUMIN 1.4 g/dL (3.5-5.0); BILIRUBIN,TOTAL 3.3 mg/dL (0.2-1.0); CREATININE 0.5 mg/dL (0.5-1.0); PHOSPHORUS 3.1 mg/dL (2.5-4.9); POTASSIUM 3.7 mmol/L (3.5-5.1); TOTAL PROTEIN, SERUM 6.3 g/dL (6.0-8.3)
[2023-07-05] MEDS ORDERED: DIATR MEGLU/DIATRIZOATE SODIUM 30 ML BOTTLE ONE (14:50)
[2023-07-05 15:55] LABS: CHOLESTEROL 70 mg/dL (<200); HDL CHOLESTEROL 18 mg/dL (35-85); LDL DIRECT 47 mg/dL (0-99); TRIGLYCERIDES 127 mg/dL (30-200)
[2023-07-05] MEDS ORDERED: VANCOMYCIN PROTOCOL PER PHARMACY IV SCH (16:30)
[2023-07-05] MEDS: OCTREOTIDE ACETATE 100 MCG/ML AMP IV SCH (17:21)
[2023-07-05] MEDS: VANCOMYCIN 2GM/500 ML BAG 500 ML IV ONE (17:22)
[2023-07-05 18:24] LABS: COVID19 (SARS ANTIGEN RAPID) PRESUMPTIVE NEGATIVE (NEGATIVE)
[2023-07-05 18:47] LABS: INFLUENZA TYPE A Positive For Type A (NEGATIVE); INFLUENZA TYPE B Positive For Type B (NEGATIVE)
[2023-07-05] MEDS: OSELTAMIVIR PHOSPHATE 75 MG CAP PO SCH (21:03)
[2023-07-05] MEDS: [UNRECOGNIZED DRUG - NUTRITION] IV ONE (23:47)
[2023-07-06] VITALS (27 sets, daily range): BP systolic 68–131; BP diastolic 37–102; PULSE 79–151; RESP 10–25; TEMP 99.8–102; O2SAT 96–100
[2023-07-06] MEDS: VANCOMYCIN 1.5 GM/250 ML BAG 250 ML IV SCH (05:36)
[2023-07-06 08:16] LABS: BASOPHILS # (AUTO) 0.09 K/uL (0.00-0.20); BASOPHILS % (AUTO) 0.6 % (0.0-5.0); EOSINOPHILS # (AUTO) 0.14 K/uL (0.00-0.70); HEMATOCRIT 27.2 % (36-48); IMMATURE GRANULOCYTE ABSOLUTE 0.14 K/uL (0-1); LYMPHOCYTES # (AUTO) 1.7 K/uL (1.0-4.8); LYMPHOCYTES % (AUTO) 12.1 % (21.0-51.0); MEAN CORPUSCULAR HEMOGLOBIN 27.6 pg (27.0-33.0); MEAN CORPUSCULAR VOLUME 86.3 fL (79-99); MONOCYTES # (AUTO) 1.1 K/uL (0.1-1.0); MONOCYTES % (AUTO) 7.6 % (3.0-13.0); NEUTROPHILS # (AUTO) 10.9 K/uL (1.8-7.7); NEUTROPHILS % (AUTO) 77.7 % (40.0-77.0); RED BLOOD CELL COUNT(AUTO) 3.15 MIL/uL (4.00-5.50); RED CELL DISTRIBUTION WIDTH 15.2 % (11.0-15.5)
[2023-07-06 08:27] LABS: PLATELET COUNT (AUTO) 887 K/uL (130-400)
[2023-07-06 08:30] LABS: CREATININE 0.6 mg/dL (0.5-1.0)
[2023-07-06 08:33] LABS: ALBUMIN 1.6 g/dL (3.5-5.0); BILIRUBIN,TOTAL 2.7 mg/dL (0.2-1.0); MAGNESIUM 2.4 mg/dL (1.80-2.40); PHOSPHORUS 3.9 mg/dL (2.5-4.9)
[2023-07-06] MEDS ORDERED: ROCURONIUM BROMIDE 10MG/1ML 5ML VL ONE ×3 (17:24→19:29)
[2023-07-06] MEDS ORDERED: MIDAZOLAM HCL 1 MG/ML 2ML VIAL ONE ×2 (17:24→19:29)
[2023-07-06] MEDS ORDERED: SUCCINYLCHOLINE CHLORIDE 20 MG/ML 10 ML VIAL ONE (17:24)
[2023-07-06] MEDS ORDERED: LIDOCAINE PF 100MG/5ML (2%) SYRINGE 5ML ONE (17:24)
[2023-07-06] MEDS ORDERED: PROPOFOL 10 MG/ML 20ML VIAL IV ONE (17:24)
[2023-07-06] MEDS ORDERED: FENTANYL CITRATE PF 50 MCG/1 ML 2ML VIAL ONE (17:25)
[2023-07-06] MEDS ORDERED: SODIUM BICARB 8.4% 50ML SYRINGE ONE (19:21)
[2023-07-06] MEDS ORDERED: PROPOFOL 1000 MG/100 ML IV PRN (20:30)
[2023-07-06] MEDS ORDERED: MIDAZOLAM HCL 50 MG in 0.9%NACL 50ML 50 ML IV SCH (20:30)
[2023-07-06] MEDS: PROPOFOL 1000 MG/100 ML 100 ML IV ONE (20:31)
[2023-07-06 20:48] LABS: ABG BASE EXCESS 1.3 mmol/L (-2.0-3.0); ABG OXYGEN SATURATION 98.3 % (95.0-99.0); ABG PCO2 36 mmHg (32-45); ABG PH 7.461 (7.350-7.450); CARBON MONOXIDE 0.2; HHb 1.7; VENT MODE, BG AC (ROOM AIR)
[2023-07-06] MEDS: MEROPENEM 1 GM in 0.9%NACL 100ML 100 ML IVPB SCH (21:00)
[2023-07-06] MEDS: MIDAZOLAM 50MG-0.9% NS 50ML 50 ML IV SCH (21:02)
[2023-07-06] MEDS: FENTANYL 1000MCG+NS 100ML 100 ML IV ONE (21:04)
[2023-07-06] MEDS ORDERED: PHARMACY COMMUNICATION MISC SCH (21:30)
[2023-07-06] MEDS: PHENYLEPHRINE HCL 100 MG in 0.9% NACL 250ML 240 ML IV PRN (21:36)
[2023-07-06] MEDS: ACETAMINOPHEN 1,000 MG/100 ML VIAL IV SCH (21:38)
[2023-07-06] MEDS: FENTANYL 1000MCG+NS 100ML 100 ML IV SCH (23:40)
[2023-07-07] VITALS (114 sets, daily range): BP systolic 67–166; BP diastolic 32–100; PULSE 60–128; RESP 12–22; TEMP 100; O2SAT 97–100
[2023-07-07] MEDS: NOREPINEPHRIN 8MG/250ML NS 250 ML IV SCH (01:27)
[2023-07-07] MEDS ORDERED: ACETAMINOPHEN 1,000 MG/100 ML VIAL IV PRN (02:00)
[2023-07-07 04:42] LABS: BASOPHILS # (AUTO) 0.14 K/uL (0.00-0.20); BASOPHILS % (AUTO) 0.6 % (0.0-5.0); EOSINOPHILS # (AUTO) 0.06 K/uL (0.00-0.70); EOSINOPHILS % (AUTO) 0.3 % (0.0-8.0); IMMATURE GRANULOCYTE ABSOLUTE 0.33 K/uL (0-1); LYMPHOCYTES # (AUTO) 1.5 K/uL (1.0-4.8); LYMPHOCYTES % (AUTO) 6.7 % (21.0-51.0); MEAN CORPUSCULAR HEMOGLOBIN 27.5 pg (27.0-33.0); MEAN CORPUSCULAR HGB CONC 31.2 g/dL (32.0-36.0); MONOCYTES # (AUTO) 1.3 K/uL (0.1-1.0); MONOCYTES % (AUTO) 5.7 % (3.0-13.0); NEUTROPHILS # (AUTO) 19.4 K/uL (1.8-7.7); NEUTROPHILS % (AUTO) 85.3 % (40.0-77.0); RED BLOOD CELL COUNT(AUTO) 2.84 MIL/uL (4.00-5.50); RED CELL DISTRIBUTION WIDTH 15.5 % (11.0-15.5); WHITE BLOOD COUNT (AUTO) 22.8 K/uL (4.8-10.8)
[2023-07-07 04:48] LABS: PLATELET COUNT (AUTO) 954 K/uL (130-400)
[2023-07-07 05:09] LABS: ALBUMIN 1.1 g/dL (3.5-5.0); BILIRUBIN,TOTAL 4.3 mg/dL (0.2-1.0); CREATININE 0.9 mg/dL (0.5-1.0); MAGNESIUM 1.7 mg/dL (1.80-2.40); POTASSIUM 4.5 mmol/L (3.5-5.1)
[2023-07-07] MEDS: LACTATED RINGERS 1000ML 957 ML IV ONE (10:43)
[2023-07-07] MEDS: CHLORHEXIDINE GLUCONATE 15 ML MOUTHWASH MM SCH (11:52)
[2023-07-07] MEDS ORDERED: ACETAMINOPHEN 1,000 MG/100 ML VIAL IV SCH (12:00)
[2023-07-07] MEDS: ACETAMINOPHEN 1,000 MG/100 ML VIAL IV PRN (12:27)
[2023-07-07] MEDS: CALCIUM GLUC 1GM 1 GM in 0.9%NACL 100ML 100 ML IV SCH (12:55)
[2023-07-07] MEDS: M.V.I. IV [ADULT] 10 ML, MULTITRACE-4 ADULT 10ML VIAL 3 ML in CLINIMIX-E 5%AA /D15%W 2... IV ONE (13:09)
[2023-07-07 16:24] LABS: ABG BASE EXCESS -2.1 mmol/L (-2.0-3.0); ABG HCO3 22.9 mmol/L (21.0-28.0); ABG OXYGEN SATURATION 98.7 % (95.0-99.0); ABG PCO2 40 mmHg (32-45); ABG PH 7.376 (7.350-7.450); CARBON MONOXIDE 0.5; DEVICE COMMENT LISA NP LR; HHb 1.3; PO2, ARTERIAL BG 142.3 mmHg (83.0-108.0); VENT MODE, BG AC (ROOM AIR)
[2023-07-07] MEDS ORDERED: VANCOMYCIN 1.5 GM/250 ML BAG 250 ML IV SCH (18:00)
[2023-07-07] MEDS: VANCOMYCIN 2GM/500 ML BAG 500 ML IV ONE (19:15)
[2023-07-07] MEDS: NOREPINEPHRINE 16MG/NS 250ML 250 ML IV ONE (19:36)
[2023-07-07] MEDS: ARTIFICIAL TEARS 3.5 GM OINTMENT OU SCH (21:49)
[2023-07-07] MEDS: PHARMACY COMMUNICATION MISC SCH (22:30)
[2023-07-07] MEDS: NOREPINEPHRINE 16MG/NS 250ML PREMIX IV SCH (23:04)
[2023-07-08] VITALS (130 sets, daily range): BP systolic 94–152; BP diastolic 38–86; PULSE 69–114; RESP 12–27; O2SAT 96–100
[2023-07-08 04:52] LABS: BASOPHILS # (AUTO) 0.08 K/uL (0.00-0.20); BASOPHILS % (AUTO) 0.5 % (0.0-5.0); EOSINOPHILS # (AUTO) 0.18 K/uL (0.00-0.70); EOSINOPHILS % (AUTO) 1.1 % (0.0-8.0); HEMATOCRIT 23.3 % (36-48); IMMATURE GRANULOCYTE ABSOLUTE 0.25 K/uL (0-1); LYMPHOCYTES # (AUTO) 1.3 K/uL (1.0-4.8); LYMPHOCYTES % (AUTO) 7.8 % (21.0-51.0); MEAN CORPUSCULAR HEMOGLOBIN 27.6 pg (27.0-33.0); MEAN CORPUSCULAR HGB CONC 29.6 g/dL (32.0-36.0); MEAN CORPUSCULAR VOLUME 93.2 fL (79-99); MONOCYTES # (AUTO) 1.2 K/uL (0.1-1.0); MONOCYTES % (AUTO) 7.1 % (3.0-13.0); NEUTROPHILS # (AUTO) 13.5 K/uL (1.8-7.7); RED CELL DISTRIBUTION WIDTH 15.9 % (11.0-15.5); WHITE BLOOD COUNT (AUTO) 16.5 K/uL (4.8-10.8)
[2023-07-08 04:57] LABS: PLATELET COUNT (AUTO) 738 K/uL (130-400)
[2023-07-08 05:10] LABS: BILIRUBIN,TOTAL 2.6 mg/dL (0.2-1.0); CREATININE 0.6 mg/dL (0.5-1.0); MAGNESIUM 2.2 mg/dL (1.80-2.40); PHOSPHORUS 2.8 mg/dL (2.5-4.9); POTASSIUM 4.6 mmol/L (3.5-5.1); TOTAL PROTEIN, SERUM 5.4 g/dL (6.0-8.3)
[2023-07-08] MEDS: FENTANYL 2500MCG+NS 250ML 250 ML IV SCH (07:12)
[2023-07-08] MEDS: VANCOMYCIN 1.25 GM/250 ML BAG 250 ML IV SCH (07:44)
[2023-07-08] MEDS: FUROSEMIDE 20MG VIAL IV ONE (13:15)
[2023-07-08] MEDS: [UNRECOGNIZED DRUG - NUTRITION] IV ONE (14:12)
[2023-07-08 16:03] LABS: HEMATOCRIT 24.3 % (36-48)
[2023-07-08 17:55] LABS: ABG BASE EXCESS 1.7 mmol/L (-2.0-3.0); ABG HCO3 29.1 mmol/L (21.0-28.0); ABG OXYGEN SATURATION 97.3 % (95.0-99.0); ABG PCO2 57 mmHg (32-45); ABG PH 7.326 (7.350-7.450); PO2, ARTERIAL BG 103.8 mmHg (83.0-108.0); VENT MODE, BG AC (ROOM AIR)
[2023-07-08 18:25] LABS: INR 1.11 (0.85-1.15)
[2023-07-08 18:26] LABS: PARTIAL THROMBOPLASTIN TIME 28.8 SEC (26.3-35.5)
[2023-07-09] VITALS (139 sets, daily range): BP systolic 78–162; BP diastolic 43–85; PULSE 66–104; RESP 16–18; TEMP 98.3–99.3; O2SAT 95–100
[2023-07-09] MEDS: ARTIFICIAL TEARS 3.5 GM OINTMENT OU ONE (00:20)
[2023-07-09] MEDS: CHLORHEXIDINE GLUCONATE 15 ML MOUTHWASH MM SCH (00:30)
[2023-07-09 05:13] LABS: BASOPHILS # (AUTO) 0.05 K/uL (0.00-0.20); BASOPHILS % (AUTO) 0.3 % (0.0-5.0); EOSINOPHILS # (AUTO) 0.09 K/uL (0.00-0.70); EOSINOPHILS % (AUTO) 0.6 % (0.0-8.0); HEMATOCRIT 26.3 % (36-48); IMMATURE GRANULOCYTE ABSOLUTE 0.21 K/uL (0-1); LYMPHOCYTES # (AUTO) 0.9 K/uL (1.0-4.8); LYMPHOCYTES % (AUTO) 6.4 % (21.0-51.0); MEAN CORPUSCULAR HEMOGLOBIN 28.1 pg (27.0-33.0); MEAN CORPUSCULAR HGB CONC 32.3 g/dL (32.0-36.0); MEAN CORPUSCULAR VOLUME 86.8 fL (79-99); MONOCYTES # (AUTO) 0.8 K/uL (0.1-1.0); MONOCYTES % (AUTO) 5.3 % (3.0-13.0); NEUTROPHILS # (AUTO) 12.5 K/uL (1.8-7.7); NUCLEATED RED BLOOD CELLS 0.2 % (0.0-0.19); PLATELET COUNT (AUTO) 567 K/uL (130-400); RED BLOOD CELL COUNT(AUTO) 3.03 MIL/uL (4.00-5.50); RED CELL DISTRIBUTION WIDTH 16.3 % (11.0-15.5); WHITE BLOOD COUNT (AUTO) 14.6 K/uL (4.8-10.8)
[2023-07-09 05:34] LABS: INR 1.06 (0.85-1.15); PROTHROMBIN TIME 12.4 SEC (9.6-11.6)
[2023-07-09 05:35] LABS: PARTIAL THROMBOPLASTIN TIME 30.1 SEC (26.3-35.5)
[2023-07-09 05:36] LABS: ALBUMIN 0.9 g/dL (3.5-5.0); BILIRUBIN,TOTAL 2.3 mg/dL (0.2-1.0); CREATININE 0.5 mg/dL (0.5-1.0); POTASSIUM 4.5 mmol/L (3.5-5.1); TOTAL PROTEIN, SERUM 5.4 g/dL (6.0-8.3)
[2023-07-09 05:51] LABS: WBC MORPHOLOGY CONSISTENT W/DIFF
[2023-07-09] MEDS: ACETAMINOPHEN 1,000 MG/100 ML VIAL IV PRN (07:17)
[2023-07-09] MEDS: VANCOMYCIN 1G/250ML KIT 250 ML IV ONE (08:00)
[2023-07-09] MEDS ORDERED: ROCURONIUM BROMIDE 10MG/1ML 5ML VL ONE ×2 (08:02→09:28)
[2023-07-09] MEDS ORDERED: PHENYLEPHRINE HCL 10 MG/ML 1ML VIAL IV ONE (08:02)
[2023-07-09] MEDS ORDERED: PROPOFOL 10 MG/ML 20ML VIAL IV ONE (08:02)
[2023-07-09] MEDS ORDERED: FENTANYL CITRATE PF 50 MCG/1 ML 2ML VIAL ONE ×2 (09:15→09:20)
[2023-07-09] MEDS ORDERED: ONDANSETRON 4MG INJ ONE (09:28)
[2023-07-09] MEDS ORDERED: DEXAMETHASONE SOD PHOSPHATE 10MG/ML 1ML VIAL ONE (09:28)
[2023-07-09 09:32] LABS: ABG BASE EXCESS 3.5 mmol/L (-2.0-3.0); ABG HCO3 27.3 mmol/L (21.0-28.0); ABG PCO2 38 mmHg (32-45); ABG PH 7.473 (7.350-7.450); CARBON MONOXIDE 0.3; PO2, ARTERIAL BG 159.7 mmHg (83.0-108.0); VENT MODE, BG OR VENT (ROOM AIR)
[2023-07-09] MEDS: METRONIDAZOLE 500MG/100ML BAG 100 ML IVPB SCH (13:27)
[2023-07-09] MEDS: [UNRECOGNIZED DRUG - NUTRITION] IV ONE (14:35)
[2023-07-09] MEDS ORDERED: ARTIFICIAL TEARS 3.5 GM OINTMENT OU SCH (21:00)
[2023-07-10] VITALS (118 sets, daily range): BP systolic 69–163; BP diastolic 38–142; PULSE 53–149; RESP 16–40; TEMP 98.8–102.2; O2SAT 94–100
[2023-07-10 05:10] LABS: HEMATOCRIT 23.1 % (36-48); MEAN CORPUSCULAR HEMOGLOBIN 28.3 pg (27.0-33.0); MEAN CORPUSCULAR HGB CONC 32.5 g/dL (32.0-36.0); MEAN CORPUSCULAR VOLUME 87.2 fL (79-99); NUCLEATED RED BLOOD CELLS 0.2 % (0.0-0.19); RED BLOOD CELL COUNT(AUTO) 2.65 MIL/uL (4.00-5.50); RED CELL DISTRIBUTION WIDTH 15.7 % (11.0-15.5); WHITE BLOOD COUNT (AUTO) 16.8 K/uL (4.8-10.8)
[2023-07-10 05:24] LABS: CREATININE 0.4 mg/dL (0.5-1.0); MAGNESIUM 1.7 mg/dL (1.80-2.40); POTASSIUM 4.8 mmol/L (3.5-5.1)
[2023-07-10] MEDS: MAGNESIUM 2GM PREMIX 50ML 50 ML IV SCH (06:36)
[2023-07-10] MEDS: HYDROMORPHONE 1 MG INJ IVP PRN (12:46)
[2023-07-10] MEDS: FUROSEMIDE 100MG VIAL 100 MG in 0.9%NACL 100ML 100 ML IV SCH (13:56)
[2023-07-10] MEDS: ALBUMIN (HUMAN) 25% 100 ML IV SCH (13:58)
[2023-07-10] MEDS: [UNRECOGNIZED DRUG - NUTRITION] IV ONE (14:12)
[2023-07-11] VITALS (119 sets, daily range): BP systolic 79–155; BP diastolic 28–105; PULSE 63–114; RESP 16–31; TEMP 98.7–102.4; O2SAT 96–100
[2023-07-11 05:35] LABS: ALBUMIN 1.5 g/dL (3.5-5.0); BILIRUBIN,TOTAL 1.9 mg/dL (0.2-1.0); CREATININE 0.5 mg/dL (0.5-1.0); POTASSIUM 4.3 mmol/L (3.5-5.1); TOTAL PROTEIN, SERUM 5.4 g/dL (6.0-8.3)
[2023-07-11 06:24] LABS: BASOPHILS # (AUTO) 0.05 K/uL (0.00-0.20); BASOPHILS % (AUTO) 0.3 % (0.0-5.0); EOSINOPHILS # (AUTO) 0.07 K/uL (0.00-0.70); EOSINOPHILS % (AUTO) 0.5 % (0.0-8.0); HEMATOCRIT 21.5 % (36-48); LYMPHOCYTES % (AUTO) 6.6 % (21.0-51.0); MEAN CORPUSCULAR VOLUME 85.3 fL (79-99); MONOCYTES # (AUTO) 0.5 K/uL (0.1-1.0); MONOCYTES % (AUTO) 3.7 % (3.0-13.0); NEUTROPHILS # (AUTO) 12.7 K/uL (1.8-7.7); NEUTROPHILS % (AUTO) 85.5 % (40.0-77.0); NUCLEATED RED BLOOD CELLS 0.7 % (0.0-0.19); PLATELET COUNT (AUTO) 408 K/uL (130-400); RED BLOOD CELL COUNT(AUTO) 2.52 MIL/uL (4.00-5.50); RED CELL DISTRIBUTION WIDTH 15.8 % (11.0-15.5); WHITE BLOOD COUNT (AUTO) 14.8 K/uL (4.8-10.8)
[2023-07-11 07:16] LABS: ABG BASE EXCESS 4.6 mmol/L (-2.0-3.0); ABG HCO3 28.8 mmol/L (21.0-28.0); ABG OXYGEN SATURATION 90.1 % (95.0-99.0); ABG PCO2 41 mmHg (32-45); ABG PH 7.462 (7.350-7.450); CARBON MONOXIDE 0.1; HHb 9.9; PO2, ARTERIAL BG 58.6 mmHg (83.0-108.0); VENT MODE, BG AC-VC (ROOM AIR)
[2023-07-11] MEDS: ALBUMIN (HUMAN) 25% 100 ML IV SCH (11:39)
[2023-07-11] MEDS: LINEZOLID 600 MG/ISO-OSM 300 ML IV SCH (13:16)
[2023-07-11] MEDS: M.V.I. IV [ADULT] 10 ML, MULTITRACE-4 ADULT 10ML VIAL 3 ML in CLINIMIX-E 5%AA /D15%W 2... IV ONE (15:47)
[2023-07-11] MEDS: ENOXAPARIN SODIUM 30 MG/0.3 ML SQ SCH (21:05)
[2023-07-12] VITALS (114 sets, daily range): BP systolic 90–166; BP diastolic 34–114; PULSE 77–131; RESP 16–28; O2SAT 96–100
[2023-07-12 05:55] LABS: BASOPHILS # (AUTO) 0.05 K/uL (0.00-0.20); BASOPHILS % (AUTO) 0.3 % (0.0-5.0); EOSINOPHILS # (AUTO) 0.05 K/uL (0.00-0.70); EOSINOPHILS % (AUTO) 0.3 % (0.0-8.0); LYMPHOCYTES # (AUTO) 0.7 K/uL (1.0-4.8); LYMPHOCYTES % (AUTO) 5.1 % (21.0-51.0); MEAN CORPUSCULAR HGB CONC 32.5 g/dL (32.0-36.0); MEAN CORPUSCULAR VOLUME 86.2 fL (79-99); MONOCYTES # (AUTO) 0.4 K/uL (0.1-1.0); MONOCYTES % (AUTO) 2.6 % (3.0-13.0); NUCLEATED RED BLOOD CELLS 0.3 % (0.0-0.19); PLATELET COUNT (AUTO) 302 K/uL (130-400); RED BLOOD CELL COUNT(AUTO) 2.39 MIL/uL (4.00-5.50); RED CELL DISTRIBUTION WIDTH 15.6 % (11.0-15.5); WHITE BLOOD COUNT (AUTO) 14.6 K/uL (4.8-10.8)
[2023-07-12 05:58] LABS: HEMATOCRIT 20.6 % (36-48)
[2023-07-12 06:17] LABS: ALBUMIN 2.5 g/dL (3.5-5.0); BILIRUBIN,TOTAL 2.6 mg/dL (0.2-1.0); CREATININE 0.7 mg/dL (0.5-1.0); POTASSIUM 3.3 mmol/L (3.5-5.1); TOTAL PROTEIN, SERUM 6.1 g/dL (6.0-8.3)
[2023-07-12 08:12] LABS: ABG BASE EXCESS 9.5 mmol/L (-2.0-3.0); ABG OXYGEN SATURATION 97.7 % (95.0-99.0); ABG PCO2 45 mmHg (32-45); ABG PH 7.497 (7.350-7.450); PO2, ARTERIAL BG 94.2 mmHg (83.0-108.0); VENT MODE, BG AC (ROOM AIR)
[2023-07-12] MEDS ORDERED: IOHEXOL 350 MG/ML 100ML INFUS..BTL IV ONE (14:15)
[2023-07-12] MEDS: MEROPENEM 1 GM in 0.9%NACL 100ML IVPB SCH (15:09)
[2023-07-12 20:26] LABS: HEMATOCRIT 27.6 % (36-48); MEAN CORPUSCULAR HEMOGLOBIN 27.5 pg (27.0-33.0); MEAN CORPUSCULAR HGB CONC 32.2 g/dL (32.0-36.0); MEAN CORPUSCULAR VOLUME 85.2 fL (79-99); NUCLEATED RED BLOOD CELLS 0.2 % (0.0-0.19); RED BLOOD CELL COUNT(AUTO) 3.24 MIL/uL (4.00-5.50); WHITE BLOOD COUNT (AUTO) 17.7 K/uL (4.8-10.8)
[2023-07-12 20:32] LABS: MAGNESIUM 2.3 mg/dL (1.80-2.40); POTASSIUM 4.3 mmol/L (3.5-5.1)
[2023-07-12] MEDS: M.V.I. IV [ADULT] 10 ML, MULTITRACE-4 ADULT 10ML VIAL 3 ML in CLINIMIX-E 5%AA /D15%W 2... IV ONE (21:40)
[2023-07-12] MEDS: HEPARIN 25,000 UNITS/250ML D5W 250 ML IV PRN (21:45)
[2023-07-13] VITALS (105 sets, daily range): BP systolic 92–172; BP diastolic 48–112; PULSE 87–117; RESP 17–50; O2SAT 96–100
[2023-07-13 04:44] LABS: BASOPHILS # (AUTO) 0.04 K/uL (0.00-0.20); BASOPHILS % (AUTO) 0.2 % (0.0-5.0); EOSINOPHILS % (AUTO) 0.6 % (0.0-8.0); HEMATOCRIT 24.6 % (36-48); IMMATURE GRANULOCYTE ABSOLUTE 0.39 K/uL (0-1); LYMPHOCYTES % (AUTO) 5.7 % (21.0-51.0); MEAN CORPUSCULAR HEMOGLOBIN 27.8 pg (27.0-33.0); MEAN CORPUSCULAR HGB CONC 32.9 g/dL (32.0-36.0); MEAN CORPUSCULAR VOLUME 84.5 fL (79-99); MONOCYTES # (AUTO) 0.4 K/uL (0.1-1.0); MONOCYTES % (AUTO) 2.5 % (3.0-13.0); NEUTROPHILS # (AUTO) 15.1 K/uL (1.8-7.7); NEUTROPHILS % (AUTO) 88.7 % (40.0-77.0); NUCLEATED RED BLOOD CELLS 0.1 % (0.0-0.19); PLATELET COUNT (AUTO) 296 K/uL (130-400); RED BLOOD CELL COUNT(AUTO) 2.91 MIL/uL (4.00-5.50)
[2023-07-13 05:07] LABS: BILIRUBIN,TOTAL 2.1 mg/dL (0.2-1.0); CREATININE 0.6 mg/dL (0.5-1.0); MAGNESIUM 2.2 mg/dL (1.80-2.40); POTASSIUM 4.2 mmol/L (3.5-5.1); TOTAL PROTEIN, SERUM 6.3 g/dL (6.0-8.3)
[2023-07-13] MEDS: PHARMACY COMMUNICATION MISC SCH (09:30)
[2023-07-13] MEDS ORDERED: HYDROMORPHONE 1 MG INJ IVP PRN (11:00)
[2023-07-13] MEDS: SODIUM HYPOCHLORITE 0.25% [HALF STRENGTH] 473 ML TOPICAL SOLN TP SCH (11:14)
[2023-07-13] MEDS: FUROSEMIDE 40MG VIAL IV SCH (11:14)
[2023-07-13 12:27] LABS: HEMATOCRIT 28.4 % (36-48); MEAN CORPUSCULAR HEMOGLOBIN 27.5 pg (27.0-33.0); MEAN CORPUSCULAR VOLUME 85.8 fL (79-99); NUCLEATED RED BLOOD CELLS 0.2 % (0.0-0.19); RED BLOOD CELL COUNT(AUTO) 3.31 MIL/uL (4.00-5.50); WHITE BLOOD COUNT (AUTO) 18.6 K/uL (4.8-10.8)
[2023-07-13] MEDS: HEPARIN 5,000 UNIT VIAL IV STA (12:44)
[2023-07-13 19:13] LABS: INR 1.1 (0.85-1.15); PROTHROMBIN TIME 12.9 SEC (9.6-11.6)
[2023-07-13 20:47] LABS: PARTIAL THROMBOPLASTIN TIME 46.6 SEC (26.3-35.5)
[2023-07-13] MEDS: M.V.I. IV [ADULT] 10 ML, MULTITRACE-4 ADULT 10ML VIAL 3 ML in CLINIMIX-E 5%AA /D15%W 2... IV ONE (23:35)
[2023-07-14] VITALS (34 sets, daily range): BP systolic 100–169; BP diastolic 48–111; PULSE 85–113; RESP 17–36; O2SAT 98–100
[2023-07-14 03:01] LABS: HEMATOCRIT 25.8 % (36-48); MEAN CORPUSCULAR HEMOGLOBIN 27.4 pg (27.0-33.0); MEAN CORPUSCULAR HGB CONC 32.9 g/dL (32.0-36.0); MEAN CORPUSCULAR VOLUME 83.2 fL (79-99); RED BLOOD CELL COUNT(AUTO) 3.1 MIL/uL (4.00-5.50); RED CELL DISTRIBUTION WIDTH 15.9 % (11.0-15.5); WHITE BLOOD COUNT (AUTO) 16.4 K/uL (4.8-10.8)
[2023-07-14 03:07] LABS: CREATININE 0.6 mg/dL (0.5-1.0); MAGNESIUM 1.8 mg/dL (1.80-2.40); POTASSIUM 3.8 mmol/L (3.5-5.1)
[2023-07-14] MEDS: HYDROMORPHONE 0.5 MG SYG (0.5MG/0.5ML) IVP PRN (09:50)
[2023-07-14] MEDS: OCTREOTIDE ACETATE 1,250 MCG in 0.9% NACL 250ML 250 ML IV SCH (11:54)
[2023-07-14] MEDS ORDERED: DIATR MEGLU/DIATRIZOATE SODIUM 30 ML BOTTLE ONE (15:32)
[2023-07-14] MEDS: M.V.I. IV [ADULT] 10 ML, MULTITRACE-4 ADULT 10ML VIAL 3 ML in CLINIMIX-E 5%AA /D15%W 2... IV ONE (21:14)
[2023-07-15] VITALS (31 sets, daily range): BP systolic 101–134; BP diastolic 59–108; PULSE 77–107; RESP 16–30; O2SAT 98–100
[2023-07-15 07:05] LABS: BASOPHILS # (AUTO) 0.07 K/uL (0.00-0.20); BASOPHILS % (AUTO) 0.4 % (0.0-5.0); EOSINOPHILS # (AUTO) 0.09 K/uL (0.00-0.70); EOSINOPHILS % (AUTO) 0.6 % (0.0-8.0); HEMATOCRIT 30.5 % (36-48); IMMATURE GRANULOCYTE ABSOLUTE 0.72 K/uL (0-1); LYMPHOCYTES # (AUTO) 1.2 K/uL (1.0-4.8); LYMPHOCYTES % (AUTO) 7.3 % (21.0-51.0); MEAN CORPUSCULAR HEMOGLOBIN 27.5 pg (27.0-33.0); MEAN CORPUSCULAR HGB CONC 32.8 g/dL (32.0-36.0); MONOCYTES # (AUTO) 0.7 K/uL (0.1-1.0); MONOCYTES % (AUTO) 4.4 % (3.0-13.0); NEUTROPHILS # (AUTO) 13.5 K/uL (1.8-7.7); NEUTROPHILS % (AUTO) 82.9 % (40.0-77.0); PLATELET COUNT (AUTO) 391 K/uL (130-400); RED BLOOD CELL COUNT(AUTO) 3.63 MIL/uL (4.00-5.50); RED CELL DISTRIBUTION WIDTH 15.6 % (11.0-15.5); WHITE BLOOD COUNT (AUTO) 16.3 K/uL (4.8-10.8)
[2023-07-15 07:16] LABS: INR 1.09 (0.85-1.15); PROTHROMBIN TIME 12.8 SEC (9.6-11.6)
[2023-07-15 07:18] LABS: ALBUMIN 2.2 g/dL (3.5-5.0); BILIRUBIN,TOTAL 1.6 mg/dL (0.2-1.0); CREATININE 0.6 mg/dL (0.5-1.0); PARTIAL THROMBOPLASTIN TIME 38.4 SEC (26.3-35.5); PHOSPHORUS 4.3 mg/dL (2.5-4.9); TOTAL PROTEIN, SERUM 7.5 g/dL (6.0-8.3)
[2023-07-15] MEDS ORDERED: HEPARIN 5,000 UNIT VIAL IV ONE (08:45)
[2023-07-15] MEDS: HEPARIN 5,000 UNIT VIAL IV ONE (08:48)
[2023-07-15] MEDS: HYDROMORPHONE 1 MG INJ IVP PRN (13:37)
[2023-07-15] MEDS: ENOXAPARIN SODIUM 100 MG/1 ML SQ SCH (20:03)
[2023-07-15] MEDS: M.V.I. IV [ADULT] 10 ML, MULTITRACE-4 ADULT 10ML VIAL 3 ML in CLINIMIX-E 5%AA /D15%W 2... IV ONE (21:13)
[2023-07-16] VITALS (26 sets, daily range): BP systolic 98–125; BP diastolic 58–79; PULSE 87–106; RESP 20–30; O2SAT 94–100
[2023-07-16] MEDS: SODIUM HYPOCHLORITE 0.25% [HALF STRENGTH] 473 ML TOPICAL SOLN TP SCH (02:30)
[2023-07-16 05:59] LABS: BASOPHILS # (AUTO) 0.11 K/uL (0.00-0.20); BASOPHILS % (AUTO) 0.6 % (0.0-5.0); EOSINOPHILS # (AUTO) 0.11 K/uL (0.00-0.70); EOSINOPHILS % (AUTO) 0.6 % (0.0-8.0); HEMATOCRIT 29.5 % (36-48); IMMATURE GRANULOCYTE ABSOLUTE 0.83 K/uL (0-1); LYMPHOCYTES # (AUTO) 1.1 K/uL (1.0-4.8); LYMPHOCYTES % (AUTO) 5.8 % (21.0-51.0); MEAN CORPUSCULAR HEMOGLOBIN 27.6 pg (27.0-33.0); MEAN CORPUSCULAR HGB CONC 32.2 g/dL (32.0-36.0); MEAN CORPUSCULAR VOLUME 85.8 fL (79-99); MONOCYTES % (AUTO) 5.3 % (3.0-13.0); NEUTROPHILS % (AUTO) 83.4 % (40.0-77.0); PLATELET COUNT (AUTO) 434 K/uL (130-400); RED BLOOD CELL COUNT(AUTO) 3.44 MIL/uL (4.00-5.50); RED CELL DISTRIBUTION WIDTH 15.3 % (11.0-15.5); WHITE BLOOD COUNT (AUTO) 19.2 K/uL (4.8-10.8)
[2023-07-16] MEDS: HYDROMORPHONE 0.5 MG SYG (0.5MG/0.5ML) IVP PRN (06:09)
[2023-07-16 06:10] LABS: INR 1.11 (0.85-1.15)
[2023-07-16 06:11] LABS: PARTIAL THROMBOPLASTIN TIME 23.9 SEC (26.3-35.5)
[2023-07-16 06:12] LABS: CREATININE 0.6 mg/dL (0.5-1.0); MAGNESIUM 1.9 mg/dL (1.80-2.40); PHOSPHORUS 3.8 mg/dL (2.5-4.9); POTASSIUM 4.2 mmol/L (3.5-5.1)
[2023-07-16] MEDS: M.V.I. IV [ADULT] 10 ML, MULTITRACE-4 ADULT 10ML VIAL 3 ML in CLINIMIX-E 5%AA /D15%W 2... IV ONE (15:58)
[2023-07-16] MEDS: LORAZEPAM 2 MG/ML 1 ML VIAL IVP PRN (19:55)
[2023-07-17] VITALS (26 sets, daily range): BP systolic 103–148; BP diastolic 57–88; PULSE 78–106; RESP 18–30; O2SAT 95–96
[2023-07-17 08:05] LABS: HEMATOCRIT 30.9 % (36-48); MEAN CORPUSCULAR HGB CONC 33.3 g/dL (32.0-36.0); PLATELET COUNT (AUTO) 517 K/uL (130-400); RED BLOOD CELL COUNT(AUTO) 3.68 MIL/uL (4.00-5.50); RED CELL DISTRIBUTION WIDTH 15.4 % (11.0-15.5); WHITE BLOOD COUNT (AUTO) 21.4 K/uL (4.8-10.8)
[2023-07-17 08:28] LABS: ALBUMIN 2.3 g/dL (3.5-5.0); BILIRUBIN,TOTAL 1.6 mg/dL (0.2-1.0); CREATININE 0.6 mg/dL (0.5-1.0); MAGNESIUM 2.1 mg/dL (1.80-2.40); POTASSIUM 4.4 mmol/L (3.5-5.1); TOTAL PROTEIN, SERUM 7.6 g/dL (6.0-8.3)
[2023-07-17 09:10] LABS: EOSINOPHILS % (MANUAL) 1 % (1-6); LYMPHOCYTES % (MANUAL) 7 % (22-44); MAN.DIFF COMMENT-IMPRESSION MANUAL DIFFERENTIAL; MONOCYTES % (MANUAL) 4 % (2-9); PLATELET MORPHOLOGY COMMENT MARKED INCREASE; SEGMENTED NEUTROPHILS % 88 % (40-70); TOTAL CELLS COUNTED 100
[2023-07-17] MEDS: M.V.I. IV [ADULT] 10 ML, MULTITRACE-4 ADULT 10ML VIAL 3 ML in CLINIMIX-E 5%AA /D15%W 2... IV ONE (12:59)
[2023-07-17] MEDS ORDERED: LORAZEPAM 2 MG/ML 1 ML VIAL IVP PRN (20:00)
[2023-07-18] VITALS (28 sets, daily range): BP systolic 99–139; BP diastolic 62–84; PULSE 83–125; RESP 20–39; O2SAT 97
[2023-07-18 05:11] LABS: BASOPHILS # (AUTO) 0.09 K/uL (0.00-0.20); BASOPHILS % (AUTO) 0.4 % (0.0-5.0); EOSINOPHILS # (AUTO) 0.03 K/uL (0.00-0.70); EOSINOPHILS % (AUTO) 0.1 % (0.0-8.0); HEMATOCRIT 31.5 % (36-48); IMMATURE GRANULOCYTE ABSOLUTE 0.37 K/uL (0-1); LYMPHOCYTES # (AUTO) 1.5 K/uL (1.0-4.8); LYMPHOCYTES % (AUTO) 7.6 % (21.0-51.0); MEAN CORPUSCULAR HEMOGLOBIN 27.9 pg (27.0-33.0); MEAN CORPUSCULAR HGB CONC 32.4 g/dL (32.0-36.0); MEAN CORPUSCULAR VOLUME 86.1 fL (79-99); MONOCYTES # (AUTO) 1.2 K/uL (0.1-1.0); MONOCYTES % (AUTO) 5.8 % (3.0-13.0); NEUTROPHILS % (AUTO) 84.3 % (40.0-77.0); PLATELET COUNT (AUTO) 576 K/uL (130-400); RED BLOOD CELL COUNT(AUTO) 3.66 MIL/uL (4.00-5.50); RED CELL DISTRIBUTION WIDTH 15.8 % (11.0-15.5); WHITE BLOOD COUNT (AUTO) 20.2 K/uL (4.8-10.8)
[2023-07-18 05:21] LABS: ALBUMIN 2.3 g/dL (3.5-5.0); BILIRUBIN,TOTAL 1.6 mg/dL (0.2-1.0); CREATININE 0.5 mg/dL (0.5-1.0); POTASSIUM 4.5 mmol/L (3.5-5.1); TOTAL PROTEIN, SERUM 7.6 g/dL (6.0-8.3)
[2023-07-18] MEDS: FUROSEMIDE 40MG VIAL IV SCH (08:47)
[2023-07-18] MEDS: FAT EMULSIONS 20% 250ML 250 ML IV SCH (08:48)
[2023-07-18] MEDS: M.V.I. IV [ADULT] 10 ML, MULTITRACE-4 ADULT 10ML VIAL 3 ML in CLINIMIX-E 5%AA /D15%W 2... IV ONE (15:29)
[2023-07-18] MEDS: KETOROLAC 15MG/ML VIAL (15MG/ML) IV PRN (22:04)
[2023-07-19] VITALS (21 sets, daily range): BP systolic 117–147; BP diastolic 66–92; PULSE 77–109; RESP 19–28; O2SAT 97
[2023-07-19 06:22] LABS: BASOPHILS # (AUTO) 0.08 K/uL (0.00-0.20); BASOPHILS % (AUTO) 0.5 % (0.0-5.0); EOSINOPHILS % (AUTO) 8.5 % (0.0-8.0); HEMATOCRIT 29.5 % (36-48); IMMATURE GRANULOCYTE ABSOLUTE 0.14 K/uL (0-1); LYMPHOCYTES # (AUTO) 1.3 K/uL (1.0-4.8); LYMPHOCYTES % (AUTO) 8.2 % (21.0-51.0); MEAN CORPUSCULAR HEMOGLOBIN 27.9 pg (27.0-33.0); MEAN CORPUSCULAR HGB CONC 32.9 g/dL (32.0-36.0); MEAN CORPUSCULAR VOLUME 84.8 fL (79-99); MONOCYTES # (AUTO) 0.9 K/uL (0.1-1.0); MONOCYTES % (AUTO) 6.1 % (3.0-13.0); NEUTROPHILS # (AUTO) 11.6 K/uL (1.8-7.7); NEUTROPHILS % (AUTO) 75.8 % (40.0-77.0); PLATELET COUNT (AUTO) 584 K/uL (130-400); RED BLOOD CELL COUNT(AUTO) 3.48 MIL/uL (4.00-5.50); RED CELL DISTRIBUTION WIDTH 15.9 % (11.0-15.5); WHITE BLOOD COUNT (AUTO) 15.3 K/uL (4.8-10.8)
[2023-07-19 06:29] LABS: ALBUMIN 2.2 g/dL (3.5-5.0); BILIRUBIN,TOTAL 1.7 mg/dL (0.2-1.0); CREATININE 0.5 mg/dL (0.5-1.0); POTASSIUM 4.4 mmol/L (3.5-5.1); TOTAL PROTEIN, SERUM 7.5 g/dL (6.0-8.3)
[2023-07-19] MEDS: M.V.I. IV [ADULT] 10 ML, MULTITRACE-4 ADULT 10ML VIAL 3 ML in CLINIMIX-E 5%AA /D15%W 2... IV NR (18:22)
[2023-07-19] MEDS ORDERED: COMPOUND IV REFRIGERATED 1 EACH IVSOLN MISC PRN (21:00)
[2023-07-19] MEDS ORDERED: BENZOCAINE/MENTH/CETYLPYRD CL 1 EACH LOZENGE MM PRN (21:30)
[2023-07-19 23:37] LABS: INFLUENZA TYPE A Negative For Type A (NEGATIVE)
[2023-07-19 23:38] LABS: COVID19 (SARS ANTIGEN RAPID) PRESUMPTIVE NEGATIVE (NEGATIVE)
[2023-07-19 23:45] LABS: INFLUENZA TYPE B Positive For Type B (NEGATIVE)
[2023-07-20] VITALS (12 sets, daily range): BP systolic 112–137; BP diastolic 67–88; PULSE 82–108; RESP 19–29; O2SAT 98
[2023-07-20] MEDS: VANCOMYCIN 1.25 GM/250 ML BAG 250 ML IV SCH (00:41)
[2023-07-20] MEDS ORDERED: DIATR MEGLU/DIATRIZOATE SODIUM 30 ML BOTTLE ONE (02:06)
[2023-07-20 05:52] LABS: BASOPHILS # (AUTO) 0.12 K/uL (0.00-0.20); EOSINOPHILS # (AUTO) 0.02 K/uL (0.00-0.70); EOSINOPHILS % (AUTO) 0.2 % (0.0-8.0); HEMATOCRIT 29.7 % (36-48); LYMPHOCYTES # (AUTO) 1.2 K/uL (1.0-4.8); LYMPHOCYTES % (AUTO) 9.6 % (21.0-51.0); MEAN CORPUSCULAR HEMOGLOBIN 28.2 pg (27.0-33.0); MEAN CORPUSCULAR HGB CONC 32.7 g/dL (32.0-36.0); MEAN CORPUSCULAR VOLUME 86.3 fL (79-99); MONOCYTES # (AUTO) 0.8 K/uL (0.1-1.0); MONOCYTES % (AUTO) 6.3 % (3.0-13.0); NEUTROPHILS # (AUTO) 10.3 K/uL (1.8-7.7); NEUTROPHILS % (AUTO) 82.1 % (40.0-77.0); PLATELET COUNT (AUTO) 565 K/uL (130-400); RED BLOOD CELL COUNT(AUTO) 3.44 MIL/uL (4.00-5.50); RED CELL DISTRIBUTION WIDTH 16.2 % (11.0-15.5); WHITE BLOOD COUNT (AUTO) 12.5 K/uL (4.8-10.8)
[2023-07-20 06:11] LABS: ALBUMIN 2.3 g/dL (3.5-5.0); BILIRUBIN,TOTAL 2.3 mg/dL (0.2-1.0); CREATININE 0.5 mg/dL (0.5-1.0); POTASSIUM 4.2 mmol/L (3.5-5.1); TOTAL PROTEIN, SERUM 7.5 g/dL (6.0-8.3)
[2023-07-20] MEDS ORDERED: IOHEXOL 350 MG/ML 100ML INFUS..BTL IV ONE (09:56)
[2023-07-20] MEDS: OSELTAMIVIR PHOSPHATE 75 MG CAP PO SCH (09:56)
[2023-07-20] MEDS: OCTREOTIDE ACETATE 100 MCG/ML AMP IV SCH (16:35)
[2023-07-21] VITALS (15 sets, daily range): BP systolic 97–142; BP diastolic 61–89; PULSE 61–96; RESP 16–20; O2SAT 98
[2023-07-21 06:26] LABS: INR 1.06 (0.85-1.15); PROTHROMBIN TIME 12.5 SEC (9.6-11.6)
[2023-07-21 06:27] LABS: PARTIAL THROMBOPLASTIN TIME 31.1 SEC (26.3-35.5)
[2023-07-21] MEDS: PHARMACY COMMUNICATION MISC SCH (08:15)
[2023-07-21] MEDS ORDERED: IOHEXOL 350 MG/ML 100ML INFUS..BTL IV ONE (11:20)
[2023-07-21] MEDS ORDERED: FENTANYL CITRATE PF 50 MCG/1 ML 2ML VIAL ONE (11:39)
[2023-07-21] MEDS ORDERED: MIDAZOLAM HCL 1 MG/ML 2ML VIAL ONE (11:40)
[2023-07-21] MEDS: M.V.I. IV [ADULT] 10 ML, MULTITRACE-4 ADULT 10ML VIAL 3 ML in CLINIMIX-E 5%AA /D15%W 2... IV ONE (14:25)
[2023-07-22] VITALS (8 sets, daily range): BP systolic 118–147; BP diastolic 72–93; PULSE 80–95; RESP 16–18; O2SAT 96–98
[2023-07-22 06:51] LABS: BASOPHILS # (AUTO) 0.06 K/uL (0.00-0.20); BASOPHILS % (AUTO) 0.7 % (0.0-5.0); EOSINOPHILS # (AUTO) 0.08 K/uL (0.00-0.70); EOSINOPHILS % (AUTO) 0.9 % (0.0-8.0); HEMATOCRIT 29.8 % (36-48); IMMATURE GRANULOCYTE ABSOLUTE 0.04 K/uL (0-1); LYMPHOCYTES # (AUTO) 1.2 K/uL (1.0-4.8); LYMPHOCYTES % (AUTO) 13.4 % (21.0-51.0); MEAN CORPUSCULAR HEMOGLOBIN 27.7 pg (27.0-33.0); MEAN CORPUSCULAR HGB CONC 32.2 g/dL (32.0-36.0); MEAN CORPUSCULAR VOLUME 85.9 fL (79-99); MONOCYTES # (AUTO) 0.7 K/uL (0.1-1.0); MONOCYTES % (AUTO) 7.7 % (3.0-13.0); NEUTROPHILS # (AUTO) 7.1 K/uL (1.8-7.7); NEUTROPHILS % (AUTO) 76.9 % (40.0-77.0); PLATELET COUNT (AUTO) 551 K/uL (130-400); RED BLOOD CELL COUNT(AUTO) 3.47 MIL/uL (4.00-5.50); RED CELL DISTRIBUTION WIDTH 17.2 % (11.0-15.5); WHITE BLOOD COUNT (AUTO) 9.2 K/uL (4.8-10.8)
[2023-07-22 07:11] LABS: ALBUMIN 2.4 g/dL (3.5-5.0); BILIRUBIN,TOTAL 2.4 mg/dL (0.2-1.0); CREATININE 0.5 mg/dL (0.5-1.0); POTASSIUM 4.3 mmol/L (3.5-5.1); TOTAL PROTEIN, SERUM 7.9 g/dL (6.0-8.3)
[2023-07-22 15:06] LABS: AMYLASE 120 U/L (25-115)
[2023-07-22] MEDS: M.V.I. IV [ADULT] 10 ML, MULTITRACE-4 ADULT 10ML VIAL 3 ML in CLINIMIX-E 5%AA /D15%W 2... IV ONE (17:53)
[2023-07-23] VITALS (8 sets, daily range): BP systolic 121–131; BP diastolic 78–87; PULSE 82–93; RESP 16–20; O2SAT 98–100
[2023-07-23] MEDS: MEROPENEM 1 GM in 0.9%NACL 100ML 100 ML IVPB SCH (00:26)
[2023-07-23 10:13] LABS: HEMATOCRIT 28.5 % (36-48); MEAN CORPUSCULAR HEMOGLOBIN 28.4 pg (27.0-33.0); MEAN CORPUSCULAR HGB CONC 31.9 g/dL (32.0-36.0); MEAN CORPUSCULAR VOLUME 89.1 fL (79-99); PLATELET COUNT (AUTO) 540 K/uL (130-400); RED CELL DISTRIBUTION WIDTH 17.5 % (11.0-15.5); WHITE BLOOD COUNT (AUTO) 8.7 K/uL (4.8-10.8)
[2023-07-23 10:32] LABS: BAND NEUTROPHILS % (MANUAL) 9 % (0-2); BASOPHILS % (MANUAL) 1 % (0-2); LYMPHOCYTES % (MANUAL) 11 % (22-44); MAN.DIFF COMMENT-IMPRESSION MANUAL DIFFERENTIAL; MONOCYTES % (MANUAL) 6 % (2-9); PLATELET MORPHOLOGY COMMENT INCREASED; SEGMENTED NEUTROPHILS % 73 % (40-70); TOTAL CELLS COUNTED 100; WBC MORPHOLOGY CONSISTENT W/DIFF
[2023-07-23] MEDS: M.V.I. IV [ADULT] 10 ML, MULTITRACE-4 ADULT 10ML VIAL 3 ML in CLINIMIX-E 5%AA /D15%W 2... IV ONE (16:58)
[2023-07-24] VITALS (9 sets, daily range): BP systolic 117–141; BP diastolic 70–86; PULSE 67–103; RESP 16–21; O2SAT 98–100
[2023-07-24 04:32] LABS: BASOPHILS # (AUTO) 0.05 K/uL (0.00-0.20); BASOPHILS % (AUTO) 0.6 % (0.0-5.0); EOSINOPHILS # (AUTO) 0.08 K/uL (0.00-0.70); HEMATOCRIT 28.8 % (36-48); IMMATURE GRANULOCYTE ABSOLUTE 0.03 K/uL (0-1); LYMPHOCYTES # (AUTO) 1.1 K/uL (1.0-4.8); LYMPHOCYTES % (AUTO) 13.9 % (21.0-51.0); MEAN CORPUSCULAR HEMOGLOBIN 28.9 pg (27.0-33.0); MEAN CORPUSCULAR HGB CONC 32.3 g/dL (32.0-36.0); MEAN CORPUSCULAR VOLUME 89.4 fL (79-99); MONOCYTES # (AUTO) 0.7 K/uL (0.1-1.0); MONOCYTES % (AUTO) 9.3 % (3.0-13.0); NEUTROPHILS # (AUTO) 5.8 K/uL (1.8-7.7); NEUTROPHILS % (AUTO) 74.8 % (40.0-77.0); PLATELET COUNT (AUTO) 452 K/uL (130-400); RED BLOOD CELL COUNT(AUTO) 3.22 MIL/uL (4.00-5.50); RED CELL DISTRIBUTION WIDTH 17.8 % (11.0-15.5); WHITE BLOOD COUNT (AUTO) 7.7 K/uL (4.8-10.8)
[2023-07-24 04:47] LABS: ALBUMIN 2.4 g/dL (3.5-5.0); BILIRUBIN,TOTAL 1.8 mg/dL (0.2-1.0); CREATININE 0.5 mg/dL (0.5-1.0); POTASSIUM 4.1 mmol/L (3.5-5.1); TOTAL PROTEIN, SERUM 7.6 g/dL (6.0-8.3)
[2023-07-24] MEDS: M.V.I. IV [ADULT] 10 ML, MULTITRACE-4 ADULT 10ML VIAL 3 ML in CLINIMIX-E 5%AA /D15%W 2... IV ONE (16:53)
[2023-07-25] VITALS (8 sets, daily range): BP systolic 120–133; BP diastolic 73–88; PULSE 77–86; RESP 16–21; O2SAT 98–99
[2023-07-25] MEDS: M.V.I. IV [ADULT] 10 ML, MULTITRACE-4 ADULT 10ML VIAL 3 ML in CLINIMIX-E 5%AA /D15%W 2... IV ONE (20:18)
[2023-07-26] VITALS (8 sets, daily range): BP systolic 118–129; BP diastolic 76–83; PULSE 72–94; RESP 16–20; O2SAT 98–99
[2023-07-26 04:05] LABS: BASOPHILS # (AUTO) 0.05 K/uL (0.00-0.20); BASOPHILS % (AUTO) 0.7 % (0.0-5.0); EOSINOPHILS # (AUTO) 0.34 K/uL (0.00-0.70); EOSINOPHILS % (AUTO) 4.6 % (0.0-8.0); HEMATOCRIT 28.4 % (36-48); IMMATURE GRANULOCYTE ABSOLUTE 0.05 K/uL (0-1); LYMPHOCYTES # (AUTO) 1.3 K/uL (1.0-4.8); LYMPHOCYTES % (AUTO) 17.1 % (21.0-51.0); MEAN CORPUSCULAR HEMOGLOBIN 28.7 pg (27.0-33.0); MEAN CORPUSCULAR HGB CONC 31.7 g/dL (32.0-36.0); MEAN CORPUSCULAR VOLUME 90.4 fL (79-99); MONOCYTES # (AUTO) 0.7 K/uL (0.1-1.0); NEUTROPHILS % (AUTO) 67.9 % (40.0-77.0); PLATELET COUNT (AUTO) 397 K/uL (130-400); RED BLOOD CELL COUNT(AUTO) 3.14 MIL/uL (4.00-5.50); RED CELL DISTRIBUTION WIDTH 18.5 % (11.0-15.5); WHITE BLOOD COUNT (AUTO) 7.4 K/uL (4.8-10.8)
[2023-07-26 04:19] LABS: ALBUMIN 2.3 g/dL (3.5-5.0); BILIRUBIN,TOTAL 1.2 mg/dL (0.2-1.0); CREATININE 0.5 mg/dL (0.5-1.0); POTASSIUM 3.8 mmol/L (3.5-5.1); TOTAL PROTEIN, SERUM 7.3 g/dL (6.0-8.3)
[2023-07-26] MEDS: FAT EMULSIONS 20% 250ML 250 ML IV SCH (09:08)
[2023-07-26 13:11] LABS: CHOLESTEROL 162 mg/dL (<200); HDL CHOLESTEROL 34 mg/dL (35-85); LDL DIRECT 117 mg/dL (0-99); TRIGLYCERIDES 108 mg/dL (30-200)
[2023-07-26] MEDS: [UNRECOGNIZED DRUG - NUTRITION] IV ONE (17:59)
[2023-07-27] VITALS (8 sets, daily range): BP systolic 113–141; BP diastolic 69–85; PULSE 79–91; RESP 16–20; O2SAT 97–99
[2023-07-27 11:14] LABS: HEPATITIS A ANTIBODY IGM Negative (Negative); HEPATITIS B CORE IGM Negative (Negative); HEPATITIS Bs ANTIGEN SCREEN P Negative (Negative); HEPATITIS C VIRUS ANTIBODY Non Reactive (Non Reactive)
[2023-07-27] MEDS ORDERED: [UNRECOGNIZED DRUG - NUTRITION] IV ONE (17:00)
[2023-07-28] VITALS (7 sets, daily range): BP systolic 112–125; BP diastolic 64–81; PULSE 68–104; RESP 16–18; O2SAT 94–99
[2023-07-28 03:48] LABS: HEMATOCRIT 30.8 % (36-48); MEAN CORPUSCULAR HEMOGLOBIN 29.2 pg (27.0-33.0); MEAN CORPUSCULAR HGB CONC 32.1 g/dL (32.0-36.0); MEAN CORPUSCULAR VOLUME 90.9 fL (79-99); RED BLOOD CELL COUNT(AUTO) 3.39 MIL/uL (4.00-5.50); RED CELL DISTRIBUTION WIDTH 18.6 % (11.0-15.5); WHITE BLOOD COUNT (AUTO) 6.1 K/uL (4.8-10.8)
[2023-07-28 04:07] LABS: CREATININE 0.5 mg/dL (0.5-1.0); POTASSIUM 4.3 mmol/L (3.5-5.1)
[2023-07-28] MEDS ORDERED: MEROPENEM 1 GM in 0.9%NACL 100ML 100 ML IVPB SCH (08:00)
[2023-07-28] MEDS: CEFTAZIDIME PENTAHYDRATE 1 GM/VIAL IVPB SCH (09:31)
[2023-07-28] MEDS ORDERED: IOHEXOL-350 50ML VIAL IV ONE (11:05)
[2023-07-28] MEDS: M.V.I. IV [ADULT] 10 ML, MULTITRACE-4 ADULT 10ML VIAL 3 ML in CLINIMIX-E 5%AA /D15%W 2... IV ONE (16:51)
[2023-07-29] VITALS (8 sets, daily range): BP systolic 113–129; BP diastolic 69–88; PULSE 67–82; RESP 17–20; O2SAT 97–98
[2023-07-29] MEDS: FAT EMULSIONS 20% 250ML 250 ML IV SCH (08:41)
[2023-07-29] MEDS ORDERED: FAT EMULSIONS 20% 250ML IV SCH (10:00)
[2023-07-29] MEDS: M.V.I. IV [ADULT] 10 ML, MULTITRACE-4 ADULT 10ML VIAL 3 ML in CLINIMIX-E 5%AA /D15%W 2... IV ONE (12:42)
[2023-07-29] MEDS ORDERED: FAMOTIDINE 20MG VIAL IV SCH (21:00)
[2023-07-30] VITALS (9 sets, daily range): BP systolic 110–134; BP diastolic 65–92; PULSE 71–117; RESP 17–24; O2SAT 98–99
[2023-07-30 04:15] LABS: BASOPHILS # (AUTO) 0.05 K/uL (0.00-0.20); BASOPHILS % (AUTO) 0.8 % (0.0-5.0); EOSINOPHILS # (AUTO) 0.27 K/uL (0.00-0.70); EOSINOPHILS % (AUTO) 4.3 % (0.0-8.0); HEMATOCRIT 30.9 % (36-48); IMMATURE GRANULOCYTE ABSOLUTE 0.02 K/uL (0-1); LYMPHOCYTES # (AUTO) 1.3 K/uL (1.0-4.8); LYMPHOCYTES % (AUTO) 19.9 % (21.0-51.0); MEAN CORPUSCULAR HEMOGLOBIN 29.4 pg (27.0-33.0); MEAN CORPUSCULAR VOLUME 91.7 fL (79-99); MONOCYTES # (AUTO) 0.6 K/uL (0.1-1.0); NEUTROPHILS # (AUTO) 4.1 K/uL (1.8-7.7); NEUTROPHILS % (AUTO) 64.7 % (40.0-77.0); PLATELET COUNT (AUTO) 329 K/uL (130-400); RED BLOOD CELL COUNT(AUTO) 3.37 MIL/uL (4.00-5.50); RED CELL DISTRIBUTION WIDTH 18.5 % (11.0-15.5); WHITE BLOOD COUNT (AUTO) 6.3 K/uL (4.8-10.8)
[2023-07-30 04:45] LABS: ALBUMIN 2.4 g/dL (3.5-5.0); BILIRUBIN,TOTAL 0.9 mg/dL (0.2-1.0); CREATININE 0.5 mg/dL (0.5-1.0); POTASSIUM 3.7 mmol/L (3.5-5.1); TOTAL PROTEIN, SERUM 7.4 g/dL (6.0-8.3)
[2023-07-30] MEDS: PANTOPRAZOLE 40 MG/VIAL IVP SCH (08:50)
[2023-07-30] MEDS: M.V.I. IV [ADULT] 10 ML, MULTITRACE-4 ADULT 10ML VIAL 3 ML in CLINIMIX-E 5%AA /D15%W 2... IV ONE (17:17)
[2023-07-31] VITALS (7 sets, daily range): BP systolic 115–137; BP diastolic 63–90; PULSE 73–95; RESP 16–20; O2SAT 98–100
[2023-07-31] MEDS: M.V.I. IV [ADULT] 10 ML, MULTITRACE-4 ADULT 10ML VIAL 3 ML in CLINIMIX-E 5%AA /D15%W 2... IV ONE (17:05)
[2023-08-01] VITALS (9 sets, daily range): BP systolic 132–145; BP diastolic 61–91; PULSE 75–92; RESP 19–21; O2SAT 98
[2023-08-01 04:10] LABS: BASOPHILS # (AUTO) 0.04 K/uL (0.00-0.20); BASOPHILS % (AUTO) 0.7 % (0.0-5.0); EOSINOPHILS # (AUTO) 0.29 K/uL (0.00-0.70); EOSINOPHILS % (AUTO) 5.1 % (0.0-8.0); HEMATOCRIT 30.4 % (36-48); IMMATURE GRANULOCYTE ABSOLUTE 0.01 K/uL (0-1); LYMPHOCYTES # (AUTO) 1.3 K/uL (1.0-4.8); LYMPHOCYTES % (AUTO) 22.7 % (21.0-51.0); MEAN CORPUSCULAR HEMOGLOBIN 28.7 pg (27.0-33.0); MEAN CORPUSCULAR HGB CONC 32.2 g/dL (32.0-36.0); MEAN CORPUSCULAR VOLUME 89.1 fL (79-99); MONOCYTES # (AUTO) 0.6 K/uL (0.1-1.0); MONOCYTES % (AUTO) 9.9 % (3.0-13.0); NEUTROPHILS # (AUTO) 3.5 K/uL (1.8-7.7); NEUTROPHILS % (AUTO) 61.4 % (40.0-77.0); PLATELET COUNT (AUTO) 320 K/uL (130-400); RED BLOOD CELL COUNT(AUTO) 3.41 MIL/uL (4.00-5.50); RED CELL DISTRIBUTION WIDTH 18.6 % (11.0-15.5); WHITE BLOOD COUNT (AUTO) 5.7 K/uL (4.8-10.8)
[2023-08-01 04:30] LABS: ALBUMIN 2.5 g/dL (3.5-5.0); BILIRUBIN,TOTAL 0.8 mg/dL (0.2-1.0); CREATININE 0.5 mg/dL (0.5-1.0); POTASSIUM 3.7 mmol/L (3.5-5.1); TOTAL PROTEIN, SERUM 7.7 g/dL (6.0-8.3)
[2023-08-01] MEDS: FAT EMULSIONS 20% 250ML 250 ML IV ONE (12:57)
[2023-08-01] MEDS: M.V.I. IV [ADULT] 10 ML, MULTITRACE-4 ADULT 10ML VIAL 3 ML in CLINIMIX-E 5%AA /D15%W 2... IV ONE (17:35)
[2023-08-02] VITALS (7 sets, daily range): BP systolic 114–130; BP diastolic 64–89; PULSE 70–90; RESP 16–19; O2SAT 95
[2023-08-02] MEDS: M.V.I. IV [ADULT] 10 ML, MULTITRACE-4 ADULT 10ML VIAL 3 ML in CLINIMIX-E 5%AA /D15%W 2... IV ONE (16:57)
[2023-08-03] VITALS (8 sets, daily range): BP systolic 113–136; BP diastolic 67–87; PULSE 73–106; RESP 18–19; O2SAT 95–98
[2023-08-03 06:21] LABS: BASOPHILS # (AUTO) 0.05 K/uL (0.00-0.20); EOSINOPHILS # (AUTO) 0.18 K/uL (0.00-0.70); EOSINOPHILS % (AUTO) 3.6 % (0.0-8.0); HEMATOCRIT 31.4 % (36-48); IMMATURE GRANULOCYTE ABSOLUTE 0.02 K/uL (0-1); LYMPHOCYTES % (AUTO) 20.4 % (21.0-51.0); MEAN CORPUSCULAR HEMOGLOBIN 29.8 pg (27.0-33.0); MEAN CORPUSCULAR HGB CONC 33.4 g/dL (32.0-36.0); MEAN CORPUSCULAR VOLUME 89.2 fL (79-99); MONOCYTES # (AUTO) 0.5 K/uL (0.1-1.0); MONOCYTES % (AUTO) 10.4 % (3.0-13.0); NEUTROPHILS # (AUTO) 3.2 K/uL (1.8-7.7); NEUTROPHILS % (AUTO) 64.2 % (40.0-77.0); PLATELET COUNT (AUTO) 265 K/uL (130-400); RED BLOOD CELL COUNT(AUTO) 3.52 MIL/uL (4.00-5.50); RED CELL DISTRIBUTION WIDTH 18.2 % (11.0-15.5)
[2023-08-03 06:31] LABS: ALBUMIN 2.5 g/dL (3.5-5.0); BILIRUBIN,TOTAL 0.8 mg/dL (0.2-1.0); CREATININE 0.5 mg/dL (0.5-1.0); POTASSIUM 3.9 mmol/L (3.5-5.1); TOTAL PROTEIN, SERUM 7.7 g/dL (6.0-8.3)
[2023-08-03] MEDS: FAT EMULSIONS 20% 250ML 250 ML IV SCH (09:29)
[2023-08-03] MEDS: LEVOFLOXACIN 750 MG/D5W 150ML BAG IV SCH (13:09)
[2023-08-03] MEDS: M.V.I. IV [ADULT] 10 ML, MULTITRACE-4 ADULT 10ML VIAL 3 ML in CLINIMIX-E 5%AA /D15%W 2... IV ONE (17:32)
[2023-08-04 04:51] VITALS: BP 131/82; PULSE 73; RESP 18
[2023-08-04 08:00] VITALS: BP 109/70; PULSE 79; RESP 18; O2SAT 98
[2023-08-04 12:00] VITALS: BP 126/88; PULSE 105; RESP 20
[2023-08-04 16:00] VITALS: BP 120/75; PULSE 97; RESP 20
[2023-08-04] MEDS: M.V.I. IV [ADULT] 10 ML, MULTITRACE-4 ADULT 10ML VIAL 3 ML in CLINIMIX-E 5%AA /D15%W 2... IV ONE (17:48)
[2023-08-04 19:54] VITALS: BP 107/51; PULSE 103; RESP 19
[2023-08-04 20:00] VITALS: O2SAT 98
[2023-08-05 00:03] VITALS: BP 119/63; PULSE 81; RESP 18
[2023-08-05 04:44] VITALS: BP 122/77; PULSE 59; RESP 19
[2023-08-05 08:00] VITALS: BP 113/81; PULSE 92; RESP 18; O2SAT 98
[2023-08-05 12:00] VITALS: BP 117/88; PULSE 85; RESP 19
== END 2023-08-05 17:50 | disposition home health service (06) | DRG 853 ==
LOC: EDH 20:01 → EDHIP 22:41 → WSH 06-23 01:40 → 2CH 06-24 05:19 → 2AH 06-29 23:39 → 2CH 06-30 15:15 → 2DH 07-03 16:45 → 2CH 07-06 17:44 → 2AH 07-20 17:44 → 3BH 07-30 15:28
PROVIDERS: ADMIT Obstetrics & Gynecology; ATTEND Obstetrics & Gynecology
PROC: 0WJG0ZZ Inspection of Peritoneal Cavity, Open Approach (ICD-10-PCS; principal; 2023-06-22 22:00)
PROC: 05HN33Z Insertion of Infusion Device into Left Internal Jugular Vein, Percutaneous Approach (ICD-10-PCS; 2023-06-24)
PROC: B544ZZA Ultrasonography of Left Jugular Veins, Guidance (ICD-10-PCS; 2023-06-24)
PROC: 0BH17EZ Insertion of Endotracheal Airway into Trachea, Via Natural or Artificial Opening (ICD-10-PCS; 2023-06-24)
PROC: 5A1955Z Respiratory Ventilation, Greater than 96 Consecutive Hours (ICD-10-PCS; 2023-06-24)
PROC: 30233K1 Transfusion of Nonautologous Frozen Plasma into Peripheral Vein, Percutaneous Approach (ICD-10-PCS; 2023-06-24)
PROC: 02HV33Z Insertion of Infusion Device into Superior Vena Cava, Percutaneous Approach (ICD-10-PCS; 2023-06-26)
PROC: 0W9G00Z Drainage of Peritoneal Cavity with Drainage Device, Open Approach (ICD-10-PCS; 2023-07-01)
PROC: 0DB80ZZ Excision of Small Intestine, Open Approach (ICD-10-PCS; 2023-07-06 17:48)
PROC: 30233N1 Transfusion of Nonautologous Red Blood Cells into Peripheral Vein, Percutaneous Approach (ICD-10-PCS; 2023-07-08)
PROC: 2W53X6Z Removal of Pressure Dressing on Abdominal Wall (ICD-10-PCS; 2023-07-09)
PROC: 0W9G00Z Drainage of Peritoneal Cavity with Drainage Device, Open Approach (ICD-10-PCS; 2023-07-12)
PROC: 5A09357 Assistance with Respiratory Ventilation, Less than 24 Consecutive Hours, Continuous Positive Airway Pressure (ICD-10-PCS; 2023-07-13)
PROC: 0W9G00Z Drainage of Peritoneal Cavity with Drainage Device, Open Approach (ICD-10-PCS; 2023-07-21)
DX: A41.50 Gram-negative sepsis, unspecified (principal); G93.41 Metabolic encephalopathy; J15.69 Pneumonia due to other Gram-negative bacteria; J96.01 Acute respiratory failure with hypoxia; R65.21 Severe sepsis with septic shock; N17.0 Acute kidney failure with tubular necrosis; J69.0 Pneumonitis due to inhalation of food and vomit; J10.08 Influenza due to other identified influenza virus with other specified pneumonia; K65.1 Peritoneal abscess; K26.5 Chronic or unspecified duodenal ulcer with perforation; N99.820 Postprocedural hemorrhage of a genitourinary system organ or structure following a genitourinary system procedure; D68.59 Other primary thrombophilia; E87.1 Hypo-osmolality and hyponatremia; I82.623 Acute embolism and thrombosis of deep veins of upper extremity, bilateral; J90 Pleural effusion, not elsewhere classified; J98.11 Atelectasis; N39.0 Urinary tract infection, site not specified; Z16.24 Resistance to multiple antibiotics; Z20.822 Contact with and (suspected) exposure to COVID-19; D63.8 Anemia in other chronic diseases classified elsewhere; D75.838 Other thrombocytosis; E66.9 Obesity, unspecified; E87.70 Fluid overload, unspecified; K76.0 Fatty (change of) liver, not elsewhere classified; M06.9 Rheumatoid arthritis, unspecified; Z74.01 Bed confinement status; K66.0 Peritoneal adhesions (postprocedural) (postinfection); Z68.31 Body mass index [BMI] 31.0-31.9, adult
CPT/HCPCS: 10030; 36415; 36430; 36600; 70450; 71045; 71250; 71260; 71270; 74018; 74176; 74177; 74178; 76080; 76705; 76856; 77012; 80048; 80053; 80061; 80202; 81001; 81025; 82140; 82150; 82330; 82435; 82550; 82803; 82947; 82948; 83605; 83690; 83735; 84100; 84132; 84134; 84145; 84295; 84443; 84466; 84478; 84484; 85014; 85018; 85025; 85027; 85378; 85384; 85610; 85730; 86705; 86709; 86850; 86900; 86901; 86923; 86927; 87040; 87070; 87071; 87076; 87077; 87088; 87186; 87205; 87340; 87426; 87804; 88307; 89051; 93005; 93306; 93970; 94002; 94003; 94150; 94640; 94664; 94667; 94668; 99152; 99153; A4344; A6407; C1751; C1894; C9113; G0378; J0171; J0330; J0461; J0612; J0690; J0713; J1100; J1170; J1450; J1644; J1650; J1885; J1940; J1956; J2001; J2020; J2060; J2185; J2212; J2250; J2270; J2354; J2371; J2405; J2543; J2550; J2704; J2710; J2997; J3010; J3370; J3475; J3480; J3490; J7030; J7040; J7050; J7608; P9016; P9017; P9045; P9046; Q9963; Q9967; 3370; A4215; A4222; A4223; A4351; A4452; A4600; A4649; A4930; A6210; A6260; A9272; A9900; C1713; C1729; C1769; G0168; G0500; J0665

== ENCOUNTER → 2023-08-11 | Outpatient (CLI) | payer OTHER ==
[~2023-08-11] MED LIST changes: -ACET-2079 PO; -DOCU-116 PO; -FURO-152 PO; -IBUP-2077 PO; +IOHEXOL 350 MG/ML 100ML INFUS..BTL IV ONE; -PREN1TAB89 PO
== END | disposition home or self-care (01) ==
LOC: RAH 11:19
PROVIDERS: ATTEND Surgery
DX: K56.609 Unspecified intestinal obstruction, unspecified as to partial versus complete obstruction (principal); Z98.890 Other specified postprocedural states; Z97.8 Presence of other specified devices
CPT/HCPCS: 74177; Q9967

== ENCOUNTER 2023-09-06 10:15 | Day surgery (SDC) | payer OTHER | END 2023-09-06 17:35 | disposition home or self-care (01) | LOC: DAH 10:15 | PROVIDERS: ATTEND Surgery | DX: K63.2 Fistula of intestine (principal); K56.699 Other intestinal obstruction unspecified as to partial versus complete obstruction; M06.9 Rheumatoid arthritis, unspecified; Z83.3 Family history of diabetes mellitus; Z82.5 Family history of asthma and other chronic lower respiratory diseases; Z80.9 Family history of malignant neoplasm, unspecified; Z82.49 Family history of ischemic heart disease and other diseases of the circulatory system; Z98.890 Other specified postprocedural states | CPT/HCPCS: 76080; 74176; 49424; J1644; Q9967 ==